=== PATIENT | female | born 1940 | race Caucasian/White ===

== ENCOUNTER 2017-04-16 18:24 | Inpatient (IN) | payer OTHER, MEDICAID ==
[2017-04-16] MEDS ORDERED: DiphenhydrAMINE 50 mg/ml Inj IVP STA (19:13)
[2017-04-16 19:53] LABS: BASO # 0.02 K/mm3 (0.0-2.0); BASO % 0.4 % (0.0-3.0); EOS # 0.1 (0.0-0.7); EOS % 2.6 % (1.5-5.0); GRAN # 2.09 (1.4-6.5); GRAN % 41.6 % (50.0-68.0); HEMOGLOBIN 14.3 g/dL (12.0-16.0); LYMPH # 2.3 (1.2-3.4); LYMPH % 45.2 % (22.0-35.0); MEAN CELL VOLUME 87.1 fl (80.0-105.0); MEAN CORPUSCULAR HEMOGLOBIN 29.2 pg (25.0-35.0); MEAN CORPUSCULAR HGB CONC 33.5 g/dl (31.0-37.0); MEAN PLATELET VOLUME 10.6 fl (7.0-11.0); MONO # 0.5 (0.1-0.6); MONO % 10.2 % (1.0-6.0); PLATELET COUNT 231 10^3/uL (120.0-450.0); RED CELL DISTRIBUTION WIDTH 13.4 % (11.5-14.5)
[2017-04-16 19:55] LABS: ALB/GLOB RATIO 1.4 (1.1-1.8); ALBUMIN 4.9 g/dL (3.0-4.8); ALT/SGPT 33 U/L (7-56); AST/SGOT 31 U/L (15-39); BLOOD UREA NITROGEN 12 mg/dL (7-21); CALCIUM 9.9 mg/dL (8.4-10.5); GFR AFRICAN-AMERICAN > 60; GFR NON-AFRICAN AMERICAN > 60
--- NOTE | 2017-04-16 20:30 | ED PDOC ---
Arrival/HPI <Zuri Lopez - Last Filed: 04/16/17 23:05> - General Historian: Patient - History of Present Illness Time/Duration: Other (today) Symptom Onset: Sudden Symptom Course: Unchanged Quality: Burning Severity Level: 2 <Jazmin Mata - Last Filed: 04/17/17 00:44> - General Chief Complaint: ENT Problem Time Seen by Provider: 04/16/17 19:13 - History of Present Illness Narrative History of Present Illness (Text): 04/16/17 20:26 76-year-old female presents today with swelling and pain to the posterior pharynx/throat. Patient states that 3 days ago she had swelling to her lips which are resolved. Patient states today she developed pain with swallowing and when she looked in the back of the Throat she noticed swelling to the uvula. Patient denies fevers or chills. Patient also states that she has had phlegm in the morning with cough. Denies chest pain or shortness of breath. Denies dizziness or weakness. Denies difficulty breathing. No new medications. (Jazmin Mata) Past Medical History - Provider Review Nursing Documentation Reviewed: Yes - Travel History Have you recently traveled outside [place] w/in the past 3 mons?: No - Infectious Disease Hx of Infectious Diseases: None - Tetanus Immunization Tetanus Immunization: Unknown - Reproductive Menopause: Yes - Cardiac Hx Hypertension: Yes - Pulmonary Hx Respiratory Disorders: No - Neurological Hx Neurological Disorder: No - HEENT Hx HEENT Disorder: No - Renal Hx Renal Disorder: No - Endocrine/Metabolic Hx Endocrine Disorders: No Hx Diabetes Mellitus Type 2: Yes - Hematological/Oncological Hx Blood Disorders: No - Integumentary Hx Dermatological Disorder: No - Musculoskeletal/Rheumatological Hx Musculoskeletal Disorders: No - Gastrointestinal Hx Gastrointestinal Disorders: No - Genitourinary/Gynecological Hx Genitourinary Disorders: No - Psychiatric Hx Psychophysiologic Disorder: No Hx Substance Use: No - Surgical History Hx Musculoskeletal Surgery: Yes (left leg) - Anesthesia Hx Anesthesia: Yes Hx Anesthesia Reactions: No Hx Malignant Hyperthermia: No - Suicidal Assessment Feels Threatened In Home Enviroment: No <Jazmin Mata - Last Filed: 04/17/17 00:44> Family/Social History - Physician Review Nursing Documentation Reviewed: Yes Family/Social History: Unknown Family HX Smoking Status: Never Smoked Hx Alcohol Use: No Hx Substance Use: No Hx Substance Use Treatment: No <Jazmin Mata - Last Filed: 04/17/17 00:44> Allergies/Home Meds <Zuri Lopez - Last Filed: 04/16/17 23:05> <Jazmin Mata - Last Filed: 04/17/17 00:44> Allergies/Adverse Reactions: Allergies No Known Allergies Allergy (Verified 04/16/17 18:44) Home Medications: Home Meds Medication Instructions Recorded Confirmed Amlodipine Besylate/Benazepril 1 cap PO DAILY 10/16/14 04/16/17 [Amlodipine Besylate and Benazepril Hydrochlor] Atorvastatin [Lipitor] 20 mg PO DAILY 10/16/14 04/16/17 Review of Systems - Review of Systems Constitutional: absent: Fatigue, Fevers ENT: Sore Throat. absent: Sinus Congestion Respiratory: Cough. absent: SOB Cardiovascular: absent: Chest Pain, Palpitations Gastrointestinal: absent: Abdominal Pain, Nausea, Vomiting Genitourinary Female: absent: Dysuria Musculoskeletal: absent: Arthralgias Neurological: absent: Headache, Dizziness Psychiatric: absent: Anxiety, Depression <Jazmin Mata - Last Filed: 04/17/17 00:44> Physical Exam Vital Signs Reviewed: Yes Temperature: Afebrile Blood Pressure: Normal Pulse: Regular Respiratory Rate: Normal Appearance: Positive for: Well-Appearing, Non-Toxic, Comfortable Pain Distress: None Mental Status: Positive for: Alert and Oriented X 3 - Systems Exam Head: Present: Atraumatic Mouth: Present: Moist Mucous Membranes Pharnyx: Present: Peritonsilar Swelling, Uvular Deviation, Soft Palate/Uvular Edema. No: Normal, ERYTHEMA, EXUDATE, TONSILS ENLARGED, Muffled/Hoarse Voice, Strider Nose (External): Present: Atraumatic Nose (Internal): Present: Normal Inspection Neck: Present: Normal Range of Motion Respiratory/Chest: Present: Clear to Auscultation, Good Air Exchange. No: Respiratory Distress, Accessory Muscle Use Cardiovascular: Present: Regular Rate and Rhythm, Normal S1, S2. No: Murmurs Abdomen: No: Tenderness Neurological: Present: GCS=15 Skin: Present: Warm, Dry, Normal Color. No: Rashes Psychiatric: Present: Alert, Oriented x 3 <Jazmin Mata - Last Filed: 04/17/17 00:44> Vital Signs Temp Pulse Resp BP Pulse Ox 04/16/17 22:42 98.2 F 67 18 141/72 04/16/17 22:03 98.2 F 67 18 141/72 100 04/16/17 19:53 69 16 157/89 H 100 04/16/17 18:38 99 F 72 16 138/74 98 Medical Decision Making <Zuri Lopez - Last Filed: 04/16/17 23:05> <Jazmin Mata - Last Filed: 04/17/17 00:44> ED Course and Treatment: 04/16/17 22:57 Patient seen and examined; is on an juana-inhibitor; appears stable in no respiratory distress; given steroids, benadryl, and pepcid for possible angioedema. CT done is showing soft palate prominence down to the epiglottis - will need close observation in the ICU. ENT called to evaluate the patient. 04/16/17 23:06 Patient seen by ENT; mild swelling noted on fiberoptic scope but not near the larynx; ENT not recommending intubation at this time; she will be placed in the ICU as discussed with Dr. Woods. (Zuri Lopez) 04/16/17 20:28 76-year-old female with posterior pharynx swelling and pain. Afebrile with stable vital signs. Patient with a history of hypertension; has been taking amlodipine/Benzapril for many years. No new medications. Patient's history suggest angioedema she has had lip swelling 3 days ago. Benadryl 25 IV Solu-Medrol 125 IV Pepcid 20 IV CBC: wnl CMP: wnl CAT scan of the neck soft tissue without contrast:FINDINGS: Limited evaluation on this noncontrast study. Atherosclerosis. Carotid calcification. Lung apices demonstrate coarsened interstitial markings. Dependent aspect of the visualized upper lobes demonstrates groundglass opacity, may be on the basis of atelectasis. Multilevel degenerative changes in the cervical spine, most severe at C5-C7. There is degenerative disc disease with disc osteophyte formation and associated impression on the central canal and neural foraminal narrowing. Partial visualization of mild paranasal sinus disease, most notably involving the right sphenoid and left maxillary sinuses. Shotty nodes. Glands appear symmetric. Soft palate appears prominent/enlarged and extends to the level of the epiglottis. Concern for underlying mass. Followup evaluation with CT with contrast or MRI is recommended. MRI is more sensitive for evaluation. IMPRESSION: Soft palate appears prominent/enlarged and extends to the level of the epiglottis. Concern for underlying lesion/mass. Followup evaluation with CT with contrast or MRI is recommended. MRI is more sensitive for evaluation. Please see additional details/findings as above. Some of the above findings may warrant followup evaluation after ct results; ENT consulted. i discussed case in depth with dr. SUÁREZ; he will have ENT residents come to ER to scope patient due to concern for angioedema. pt seen and evaluated by ENT residents; mild swelling noted on fiberoptic scope but not near the larynx; ENT is not recommending intubation at this time; pt to be placed in the ICU. case discussed with dr. woods. accepts admission impression; angioedema. admit to ICU (Jazmin Mata) - Lab Interpretations Lab Results: 04/16/17 19:30 04/16/17 19:30 Lab Results 04/16/17 19:30: WBC 5.0, RBC 4.90, Hgb 14.3, Hct 42.7, MCV 87.1, MCH 29.2, MCHC 33.5, RDW 13.4, Plt Count 231, MPV 10.6, Gran % 41.6 L, Lymph % (Auto) 45.2 H, Eddy % (Auto) 10.2 H, Eos % (Auto) 2.6, Baso % (Auto) 0.4, Gran # 2.09, Lymph # 2.3, Eddy # 0.5, Eos # 0.1, Baso # 0.02 04/16/17 19:30: Sodium 145, Potassium 4.2, Chloride 101, Carbon Dioxide 31, Anion Gap 17, BUN 12, Creatinine 0.8, Est GFR ( Amer) > 60, Est GFR (Non- Af Amer) > 60, Random Glucose 83, Calcium 9.9, Total Bilirubin 0.5, AST 31, ALT 33, Alkaline Phosphatase 74, Total Protein 8.4 H, Albumin 4.9 H, Globulin 3.6, Albumin/Globulin Ratio 1.4 - RAD Interpretation Radiology Orders: 04/16/17 19:22 NECK SOFT TISSUE W/O CONTRAST [CT] Stat 08/12/17 19:33 CHEST PORTABLE [RAD] Stat - Medication Orders Current Medication Orders: Dexamethasone (Decadron Inj) 10 mg IVP Q8 YAN Stop: 04/17/17 14:01 Famotidine (Pepcid) 20 mg IVP BID YAN Hydralazine HCl (Apresoline) 10 mg IVP Q6 PRN PRN Reason: SBP > 160 Sodium Chloride (Sodium Chloride 0.9%) 1,000 mls @ 100 mls/hr IV .Q10H YAN Insulin Human Lispro (Humalog Med) 0 units SC Q6 YAN PRN Reason: Protocol Discontinued Medications Diphenhydramine HCl (Benadryl) 25 mg IVP STAT STA Stop: 04/16/17 19:14 Last Admin: 04/16/17 19:33 Dose: 25 mg Famotidine (Pepcid) 20 mg IVP STAT STA Stop: 04/16/17 19:14 Last Admin: 04/16/17 19:34 Dose: 20 mg Methylprednisolone (Solu-Medrol) 125 mg IVP STAT STA Stop: 04/16/17 19:14 Last Admin: 04/16/17 19:34 Dose: 125 mg Pneumococcal Polyvalent Vaccine (Pneumovax 23 Vaccine) 0.5 ml IM .ONCE ONE Stop: 04/16/17 23:03 - PA / FINISHING AND SHIPPING SUPERVISOR / Resident Statement BROOKE has reviewed & agrees with the documentation as recorded. BROOKE has examined the patient and agrees with the treatment plan. <Zuri Lopez - Last Filed: 04/16/17 23:05> Disposition/Present on Arrival - Disposition Patient Plan: Admission <Zuri Lopez - Last Filed: 04/16/17 23:05> - Present on Arrival Any Indicators Present on Arrival: No History of DVT/PE: No History of Uncontrolled Diabetes: No Urinary Catheter: No History of Decub. Ulcer: No History Surgical Site Infection Following: None - Disposition Have Diagnosis and Disposition been Completed?: Yes Disposition Time: 20:30 Patient Plan: Admission <Jazmin Mata - Last Filed: 04/17/17 00:44> - Disposition Diagnosis: Angio-edema Disposition: HOSPITALIZED Patient Problems: Current Active Problems Problem Status Onset Angio-edema Acute Condition: SERIOUS
--- NOTE | 2017-04-16 21:28 | CT ---
EXAM: CT Neck Without Intravenous Contrast CLINICAL HISTORY: 76 years old, female; Pain; Painful swallowing and throat pain; Patient HX: Swelling/posterior pharynx TECHNIQUE: Axial computed tomography images of the neck without intravenous contrast. All CT scans at this facility use one or more dose reduction techniques, viz.: automated exposure control; ma/kV adjustment per patient size (including targeted exams where dose is matched to indication; i.e. head); or iterative reconstruction technique. Coronal and sagittal reformatted images were created and reviewed. COMPARISON: US - THYROID 07/22/2015 11:10:12 AM FINDINGS: Limited evaluation on this noncontrast study. Atherosclerosis. Carotid calcification. Lung apices demonstrate coarsened interstitial markings. Dependent aspect of the visualized upper lobes demonstrates groundglass opacity, may be on the basis of atelectasis. Multilevel degenerative changes in the cervical spine, most severe at C5-C7. There is degenerative disc disease with disc osteophyte formation and associated impression on the central canal and neural foraminal narrowing. Partial visualization of mild paranasal sinus disease, most notably involving the right sphenoid and left maxillary sinuses. Shotty nodes. Glands appear symmetric. Soft palate appears prominent/enlarged and extends to the level of the epiglottis. Concern for underlying mass. Followup evaluation with CT with contrast or MRI is recommended. MRI is more sensitive for evaluation. IMPRESSION: Soft palate appears prominent/enlarged and extends to the level of the epiglottis. Concern for underlying lesion/mass. Followup evaluation with CT with contrast or MRI is recommended. MRI is more sensitive for evaluation. Please see additional details/findings as above. Some of the above findings may warrant followup evaluation.
[2017-04-16 23:00] VITALS: BMI 28.3
[2017-04-16] MEDS ORDERED: Pneumococcal 23-Valent Vaccine IM ONE (23:02)
[2017-04-17] MEDS: Sodium Chloride 0.9% 1,000 ML IV SCH ×2 (00:57→12:42)
--- NOTE | 2017-04-17 04:57 | CP.PCM.HP ---
<Pollo Hernandez - Last Filed: 04/17/17 04:40> History of Present Illness - History of Present Illness History of Present Illness: Admission to ICU note for hospitalist service CC: Throat swelling and difficulty breathing HPI: This is a 76 yo F with PMH RA, HTN, Hypercholesterolemia, and DM managed with diet who presented to the ED with complaint of throat swelling and hoarseness, with increased difficulty breathing. Patient is amharic-speaking only, HPI and ROS obtained through sole filler (Tamika Chou #[id number]). Patient reports developing the throat swelling at ~11am on day of presentation to [facility]. Acute onset, persisting throughout day, prompting patient to present. No prior occurence of throat swelling reported, but notes that approx 4 days prior, she had an episode of lower-lip swelling that resolved with use of benadryl. Denies any exposures to new/exotic foods, hot/boiling foods & liquids, oropharyngeal goodwin, allergies to foods/medications, or recent illnesses. Of note, patient admits to long-term ACEi use, but states she has had no previous reactions to the medications. Denies chest pain, pain with respiration, focal weakness, nausea/emesis, dysuria, hematuria, diarrhea/constipation, or fevers/ chills. Admits to some dizziness, worsening breathing difficulty when flexing head/neck, and improved breathing when extended head/neck. All other ROS in 12- point systems review negative. 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 Iqbal Present on Admission - Present on Admission Any Indicators Present on Admission: No History of DVT/PE: No History of Uncontrolled Diabetes: No Urinary Catheter: No Review of Systems - Review of Systems All systems: reviewed and no additional remarkable complaints except (as per HPI ) Past Patient History - Infectious Disease Hx of Infectious Diseases: None - Tetanus Immunizations Tetanus Immunization: Unknown - Past Social History Smoking Status: Never Smoked - CARDIAC Hx Hypertension: Yes - PULMONARY Hx Respiratory Disorders: No - NEUROLOGICAL Hx Neurological Disorder: No - HEENT Hx HEENT Problems: No - RENAL Hx Chronic Kidney Disease: No - ENDOCRINE/METABOLIC Hx Endocrine Disorders: No Hx Diabetes Mellitus Type 2: Yes - HEMATOLOGICAL/ONCOLOGICAL Hx Blood Disorders: No - INTEGUMENTARY Hx Dermatological Problems: No - MUSCULOSKELETAL/RHEUMATOLOGICAL Hx Musculoskeletal Disorders: No - GASTROINTESTINAL Hx Gastrointestinal Disorders: No - GENITOURINARY/GYNECOLOGICAL Hx Genitourinary Disorders: No - PSYCHIATRIC Hx Psychophysiologic Disorder: No Hx Substance Use: No - SURGICAL HISTORY Hx Musculoskeletal Surgery: Yes (left leg) - ANESTHESIA Hx Anesthesia: Yes Hx Anesthesia Reactions: No Hx Malignant Hyperthermia: No Meds Allergies/Adverse Reactions: Allergies Allergy/AdvReac Type Severity Reaction Status Date / Time No Known Allergies Allergy Verified 04/16/17 18:44 Physical Exam - Constitutional Appears: Well, Non-toxic Additional comments: Uncomfortable, but not exhibiting acute distress - Head Exam Head Exam: ATRAUMATIC, NORMAL INSPECTION, NORMOCEPHALIC - Eye Exam Eye Exam: EOMI, Normal appearance. absent: Conjunctival injection, Scleral icterus Pupil Exam: absent: Irregular, Unequal - ENT Exam ENT Exam: Mucous Membranes Moist Additional comments: Not drooling Edematous/erythematous posterior pharynx and uvula - Neck Exam Neck exam: Negative for: Lymphadenopathy, Thyromegaly - Respiratory Exam Respiratory Exam: Clear to Auscultation Bilateral, NORMAL BREATHING PATTERN. absent: Accessory Muscle Use, Chest Wall Tenderness, Decreased Breath Sounds, Rales, Rhonchi, Wheezes, Respiratory Distress, Stridor Additional comments: No tachypnea, no sendy cyanosis - Cardiovascular Exam Cardiovascular Exam: REGULAR RHYTHM, RRR, +S1, +S2. absent: Bradycardia, Tachycardia, JVD - GI/Abdominal Exam GI & Abdominal Exam: Normal Bowel Sounds, Soft. absent: Diminished Bowel Sounds , Firm, Hyperactive Bowel Sounds, Hypoactive Bowel Sounds, Rigid, Tenderness - Extremities Exam Extremities exam: Positive for: tenderness (at site of keloid-like lesions in LLE), pedal pulses present (+2 radials and dorsalis pedis bilaterally). Negative for: calf tenderness, normal inspection, pedal edema Additional comments: keloid-like lesions along LLE between ankle and knee, mildly tender to palpation , no active bleeding/oozing/discharge from site - Neurological Exam Additional comments: Awake and alert, following all commands appropriately, moving all extremities spontaneously - Psychiatric Exam Psychiatric exam: Normal Affect, Normal Mood - Skin Skin Exam: Dry, Intact, Normal Color, Warm Results - Vital Signs Recent Vital Signs: Last Vital Signs Temp 98.2 F 04/17/17 04:00 Pulse 75 04/17/17 04:00 Resp 14 04/17/17 04:00 BP 130/55 L 04/17/17 04:00 Pulse Ox 94 L 04/17/17 04:00 - Labs Result Diagrams: 04/16/17 19:30 04/16/17 19:30 Assessment & Plan - Assessment and Plan (Free Text) Assessment: This is a 76 yo F with PMH RA, HTN, Hypercholesterolemia, and DM managed with diet who presented to the ED with complaint of throat swelling and hoarseness, with increased difficulty breathing. She was admitted for concern for possible angioedema, and was admitted to the ICU for close monitoring. Plan: Neuro: -awake and alert, following all commands -maintain normothermia ENT: -posterior pharynx and uvular swelling concerning for angio-edema, especially given recent lower-lip swelling and pt on ACEi -CT soft-tissue neck obtained in ED, notable for prominent/enlarged soft palate extending to level of the epiglottis, concerning for underlying lesion/mass -seen by ENT at bedside in the ED, bedside laryngoscope performed; mild swelling but not near the larynx, no indication for intubation at this time -Got Pepcid 20mg IV, Bendryl 25mg IV, and Solumedrol 125mg IV x1 each in ED; continue Pepcid IV BID as per ENT, Decadron 10mg q8 x3 doses ordered Cardio: -RRR on exam, hemodynamically stable -maintain MAP > 65, no pressor support needed at this time -NS IVF 100cc/hr Pulm: -CTAB, no sendy cyanosis, no tachypnea on exam -No need for intubation per ENT, will continue to observe, if develops respiratory distress will reconsider intubation GI: -NPO -Pepcid covers for GI ppx Renal: -Monitor I's & O's -Monitor and replete electrolytes as needed -Maintain euvolemia and euglycemia Heme: -Hgb 14.3 -no signs of acute bleeding or dehydration, continue to monitor -SCDs for DVT ppx ID: -afebrile, no leukocytosis -continue to monitor Endo: -ISS-Med given steroid use, Fingersticks q6 Dispo: ICU for observation, no need for pending intubation as per ENT FEN: NPO, NS 100cc/hr Access: Peripheral IV Consults: ENT Ppx: SCDs for DVT ppx, Pepcid covers for GI ppx Patient seen, reviewed, and discussed with attending, Dr. Claros. Decision To Admit - Pt Status Changed To: Hospital Disposition Of: Inpatient Admission - Admit Certification Admit to Inpatient:: After my assessment, the patient will require hospitalization for at least two midnights. This is because of the severity of symptoms shown, intensity of services needed, and/or the medical risk in this patient being treated as an outpatient. - . Bed Request Type: Critical Care <Johnson Claros - Last Filed: 04/17/17 05:30> Results - Vital Signs Recent Vital Signs: Last Vital Signs Temp 97.4 F L 04/17/17 04:00 Pulse 67 04/17/17 05:20 Resp 18 04/17/17 05:20 BP 130/55 L 04/17/17 04:00 Pulse Ox 96 04/17/17 05:20 - Labs Result Diagrams: 04/16/17 19:30 04/16/17 19:30 Attending/Attestation - Attestation I have personally seen and examined this patient.: Yes I have fully participated in the care of the patient.: Yes I have reviewed all pertinent clinical information: Yes Notes (Text): 04/17/17 05:27 I agree with the above mentioned note and exam by Dr. Hernandez with the addition/ exception of the following 76 y/o female presented with the sensation of fullness in the back of her throat after undergoing lip swelling a few days prior. Concern was for laryngeal edema; bedside laryngoscopy performed by ENT residents did not reveal such. Patient was given IV decadron, pepcid and will be monitored at least overnight in the ICU for continuous pulse oximetry. Given that the bulk of her angioedema occurred days prior, it appears unlikely that she will require advanced airway support at this time.
[2017-04-17] MEDS: Insulin Lispro (humaLOG) MEDIUM Coverage SC SCH ×3 (05:50→17:43)
[2017-04-17 05:59] LABS: BASO # 0.01 K/mm3 (0.0-2.0); BASO % 0.2 % (0.0-3.0); GRAN # 5.31 (1.4-6.5); GRAN % 79.6 % (50.0-68.0); HEMOGLOBIN 13.8 g/dL (12.0-16.0); LYMPH # 1.3 (1.2-3.4); LYMPH % 19.7 % (22.0-35.0); MEAN CELL VOLUME 86.5 fl (80.0-105.0); MEAN CORPUSCULAR HEMOGLOBIN 28.3 pg (25.0-35.0); MEAN CORPUSCULAR HGB CONC 32.7 g/dl (31.0-37.0); MEAN PLATELET VOLUME 10.5 fl (7.0-11.0); MONO % 0.5 % (1.0-6.0); PLATELET COUNT 222 10^3/uL (120.0-450.0); RBC 4.88 10^6/uL (3.5-6.1); RED CELL DISTRIBUTION WIDTH 13.2 % (11.5-14.5); WHITE BLOOD COUNT 6.7 10^3/ul (4.5-11.0)
[2017-04-17 06:12] LABS: ALB/GLOB RATIO 1.2 (1.1-1.8); ALBUMIN 4.6 g/dL (3.0-4.8); ALT/SGPT 29 U/L (7-56); AST/SGOT 26 U/L (15-39); BLOOD UREA NITROGEN 12 mg/dL (7-21); CALCIUM 9.4 mg/dL (8.4-10.5); GFR AFRICAN-AMERICAN > 60; GFR NON-AFRICAN AMERICAN > 60; MAGNESIUM 2.1 mg/dL (1.7-2.2)
--- NOTE | 2017-04-17 10:41 | PN ---
CHIEF DOG LICENSE INSPECTOR NOTE DATE: 04/17/2017 SUBJECTIVE: The patient is resting in bed. She speaks very little Yakut and with evidence technician stated that she has no problems swallowing. No respiratory distress. No chest pain. No feeling of swelling in her throat or lips. No fever, chills, nausea, or vomiting. No cough or shortness of breath. The patient is comfortable on room air and speaking freely. No obvious visible signs of facial lips or neck swelling. No tongue swelling as well. PHYSICAL EXAMINATION: VITAL SIGNS: Note that her temperature is 97.4, pulse is 80, respirations are 18, BP is 131/61, and O2 saturation is 96% on room air. HEENT: Head is atraumatic and normocephalic. Eyes; reactive to light. Ears, nose, and throat seems to be within normal limits. NECK: Supple. No JVD. No thyroid enlargement. No lymph nodes. HEART: Regular rate and rhythm. Normal S1 and S2. LUNGS: Reveal good breath sounds bilaterally. ABDOMEN: Soft and nontender. Normal bowel sounds. No organomegaly noted. GENITALIA AND RECTAL: Deferred. MUSCULOSKELETAL: No joint deformities. EXTREMITIES: Reveal no edema. NEUROLOGIC: She seems to be grossly intact. LABORATORY DATA: As far as her laboratories are concern, her white count is 6.7, hemoglobin is 13.8, hematocrit 42.2 with platelet of 222,000. Her sodium is 143, potassium is 3.9, chloride is 104, CO2 of 28 with a BUN of 12, creatinine of 0.7, and glucose of 166. IMPRESSION: This patient is presenting with angioedema and has a history of diabetes. PLAN: The patient will continue with her hydralazine for blood pressure. She is on insulin to cover her diabetes. The patient is on IV fluids and we will continue to observe closely and treat aggressively alone with the other consultants and the primary care doctor. Johnson Amaro MD
[2017-04-17 11:08] VITALS: O2SAT 99
--- NOTE | 2017-04-17 13:59 | CARD ---
APPROVED REPORT EKG Measurement Heart [id number] <Conclusion> Normal sinus rhythm Incomplete right bundle branch block Borderline ECG
[2017-04-18] MEDS: Insulin Lispro (humaLOG) MEDIUM Coverage SC SCH ×3 (00:03→13:00)
[2017-04-18] MEDS: Sodium Chloride 0.9% 1,000 ML IV SCH (00:13)
[2017-04-18 01:32] VITALS: TEMP 98.2
--- NOTE | 2017-04-18 07:07 | RAD ---
HISTORY: throat swelling COMPARISON: None. FINDINGS: LUNGS: No active pulmonary disease. PLEURA: No significant pleural effusion identified, no pneumothorax apparent. CARDIOVASCULAR: No radiographic findings to suggest acute or significant cardiovascular disease. OSSEOUS STRUCTURES: No significant abnormalities. VISUALIZED UPPER ABDOMEN: Normal. OTHER FINDINGS: None. IMPRESSION: No active disease.
[2017-04-18 07:12] LABS: BASO # 0.01 K/mm3 (0.0-2.0); BASO % 0.1 % (0.0-3.0); GRAN # 15.42 (1.4-6.5); GRAN % 87.9 % (50.0-68.0); HEMOGLOBIN 13.1 g/dL (12.0-16.0); LYMPH # 1.5 (1.2-3.4); LYMPH % 8.7 % (22.0-35.0); MEAN CELL VOLUME 86.1 fl (80.0-105.0); MEAN CORPUSCULAR HEMOGLOBIN 28.5 pg (25.0-35.0); MEAN CORPUSCULAR HGB CONC 33.1 g/dl (31.0-37.0); MEAN PLATELET VOLUME 10.9 fl (7.0-11.0); MONO # 0.6 (0.1-0.6); MONO % 3.3 % (1.0-6.0); PLATELET COUNT 224 10^3/uL (120.0-450.0); RED CELL DISTRIBUTION WIDTH 13.5 % (11.5-14.5); WHITE BLOOD COUNT 17.5 10^3/ul (4.5-11.0)
[2017-04-18 07:13] LABS: ALB/GLOB RATIO 1.2 (1.1-1.8); ALBUMIN 4.1 g/dL (3.0-4.8); ALT/SGPT 26 U/L (7-56); AST/SGOT 29 U/L (15-39); BLOOD UREA NITROGEN 14 mg/dL (7-21); CALCIUM 9.2 mg/dL (8.4-10.5); GFR AFRICAN-AMERICAN > 60; GFR NON-AFRICAN AMERICAN > 60; MAGNESIUM 1.9 mg/dL (1.7-2.2)
[2017-04-18 12:49] VITALS: BP 141/78; RESP 20
--- NOTE | 2017-04-18 15:26 | CP.PCM.DIS ---
<JasonKait - Last Filed: 04/18/17 15:34> Provider - Provider Date of Admission: 04/16/17 21:49 Attending physician: Hal Moseley MD Primary care physician: John Iqbal MD Consults: ENT Dr. Cordon Time Spent in preparation of Discharge (in minutes): 30 Diagnosis - Discharge Diagnosis (1) Anaphylaxis Status: Acute Priority: Medium Hospital Course - Lab Results Lab Results: Micro Results 04/16/17 23:25 Naris MRSA Culture (Admit) - Final MRSA NOT DETECTED Most Recent Lab Values WBC 17.5 10^3/ul (4.5-11.0) H D 04/18/17 06:30 RBC 4.60 10^6/uL (3.5-6.1) 04/18/17 06:30 Hgb 13.1 g/dL (12.0-16.0) 04/18/17 06:30 Hct 39.6 % (36.0-48.0) 04/18/17 06:30 MCV 86.1 fl (80.0-105.0) 04/18/17 06:30 MCH 28.5 pg (25.0-35.0) 04/18/17 06:30 MCHC 33.1 g/dl (31.0-37.0) 04/18/17 06:30 RDW 13.5 % (11.5-14.5) 04/18/17 06:30 Plt Count 224 10^3/uL (120.0-450.0) 04/18/17 06:30 MPV 10.9 fl (7.0-11.0) 04/18/17 06:30 Gran % 87.9 % (50.0-68.0) H 04/18/17 06:30 Lymph % (Auto) 8.7 % (22.0-35.0) L 04/18/17 06:30 [place] % (Auto) 3.3 % (1.0-6.0) 04/18/17 06:30 Eos % (Auto) 0.0 % (1.5-5.0) L 04/18/17 06:30 Baso % (Auto) 0.1 % (0.0-3.0) 04/18/17 06:30 Gran # 15.42 (1.4-6.5) H 04/18/17 06:30 Lymph # 1.5 (1.2-3.4) 04/18/17 06:30 [place] # 0.6 (0.1-0.6) 04/18/17 06:30 Eos # 0.0 (0.0-0.7) 04/18/17 06:30 Baso # 0.01 K/mm3 (0.0-2.0) 04/18/17 06:30 Sodium 142 mmol/L (132-148) 04/18/17 06:30 Potassium 3.9 mmol/L (3.6-5.0) 04/18/17 06:30 Chloride 106 mmol/L (95-110) 04/18/17 06:30 Carbon Dioxide 24 mmol/L (21-33) 04/18/17 06:30 Anion Gap 16 (10-20) 04/18/17 06:30 BUN 14 mg/dL (7-21) 04/18/17 06:30 Creatinine 0.6 mg/dL (0.5-1.4) 04/18/17 06:30 Est GFR ( Amer) > 60 04/18/17 06:30 Est GFR (Non-Af Amer) > 60 04/18/17 06:30 POC Glucose (mg/dL) 163 mg/dL (65-110) H 04/18/17 11:36 Random Glucose 138 mg/dL (70-110) H 04/18/17 06:30 Calcium 9.2 mg/dL (8.4-10.5) 04/18/17 06:30 Phosphorus 3.3 mg/dL (2.5-4.5) 04/18/17 06:30 Magnesium 1.9 mg/dL (1.7-2.2) 04/18/17 06:30 Total Bilirubin 0.3 mg/dL (0.2-1.3) 04/18/17 06:30 AST 29 U/L (15-39) 04/18/17 06:30 ALT 26 U/L (7-56) 04/18/17 06:30 Alkaline Phosphatase 78 U/L (38-133) 04/18/17 06:30 Total Protein 7.5 g/dL (5.8-8.3) 04/18/17 06:30 Albumin 4.1 g/dL (3.0-4.8) 04/18/17 06:30 Globulin 3.4 gm/dL 04/18/17 06:30 Albumin/Globulin Ratio 1.2 (1.1-1.8) 04/18/17 06:30 - Hospital Course Hospital Course: Discharge Summary for Dr. Moseley. Patient admitted 04/17, brought to ICU for angioedema, odynophagia. Patient seen and examined by ENT and placed on a liquid diet. Patient has been transferred to [facility] for observation by ICU team. PT S&E at bedside in ICU. Patient is stable. states it hurts to swallow. Admits to feeling swollen throat. Patient states she has been taking ACEI for about 4 years. Denies any new food intake yesterday. The face swelling started 11 am 04/16. four days prior, lower lip swelling resolved with benadryl usage. Patient is stable. vital signs stable in ICU. Dr. Horn cleared patient for Diet change to CLD for breakfast. and heart healthy diet for lunch. Patient's diet was advanced. Patient's HTN was observed and treated. Patient was on hydralazine and Norvasc 5mg. Patient told to adjust blood pressure with with primary care upon discharge. Angioedema possibly associated with ACEI usage. Patient and family told to discontinue lisinopril. - Date & Time of H&P Date of H&P: 04/18/17 Time of H&P: 15:34 Discharge Exam - Head Exam Head Exam: ATRAUMATIC, NORMAL INSPECTION, NORMOCEPHALIC - Eye Exam Eye Exam: EOMI, Normal appearance - ENT Exam ENT Exam: Mucous Membranes Moist, Normal Oropharynx - Neck Exam Neck exam: Full Rom - Respiratory Exam Respiratory Exam: NORMAL BREATHING PATTERN, UNREMARKABLE. absent: Accessory Muscle Use, Respiratory Distress - Cardiovascular Exam Cardiovascular Exam: REGULAR RHYTHM. absent: Diastolic murmur - GI/Abdominal Exam GI & Abdominal Exam: Normal Bowel Sounds, Soft, Unremarkable. absent: Tenderness - Extremities Exam Extremities exam: full ROM - Neurological Exam Neurological exam: Alert, Normal Gait, Oriented x3 - Psychiatric Exam Psychiatric exam: Normal Affect - Skin Skin Exam: Dry, Intact, Normal Color Discharge Plan - Discharge Medications Prescriptions: amLODIPine [Norvasc] 5 mg PO DAILY #30 tab Epinephrine HCl [Epipen Auto-Injector] 0.3 mg MR PRN PRN #3 ml PRN Reason: Anaphylaxis Epinephrine HCl [Epipen Auto-Injector] 0.3 mg MR PRN PRN #1 ml PRN Reason: Allergy Symptoms Famotidine [Pepcid] 40 mg PO HS #10 tablet Methylprednisolone [Medrol Dose Pack (21 tabs)] 4 mg PO DAILY #21 mg - Follow Up Plan Condition: SERIOUS Disposition: HOME/ ROUTINE Instructions: Angioedema (GEN) Additional Instructions: started on Norvasc (amlodipine) 5mg adjust blood pressure medication with primary care physician Dr. Iqbal angioedema possibly associated with ACEI usage, discontinue Lisinopril please see Mold Shaker/Compressor House Operator upon discharge within 1 week to avoid another episode carry epinephrine pen with you. instructions on how to use epinephrine pen via nurse instructions DC with medrol pack Referrals: John Iqbal MD [Primary Care Provider] - <Hal Moseley - Last Filed: 04/18/17 16:14> Provider - Provider Date of Admission: 04/16/17 21:49 Attending physician: Hal Moseley MD Primary care physician: John Iqbal MD Hospital Course - Lab Results Lab Results: Micro Results 04/16/17 23:25 Naris MRSA Culture (Admit) - Final MRSA NOT DETECTED Most Recent Lab Values WBC 17.5 10^3/ul (4.5-11.0) H D 04/18/17 06:30 RBC 4.60 10^6/uL (3.5-6.1) 04/18/17 06:30 Hgb 13.1 g/dL (12.0-16.0) 04/18/17 06:30 Hct 39.6 % (36.0-48.0) 04/18/17 06:30 MCV 86.1 fl (80.0-105.0) 04/18/17 06:30 MCH 28.5 pg (25.0-35.0) 04/18/17 06:30 MCHC 33.1 g/dl (31.0-37.0) 04/18/17 06:30 RDW 13.5 % (11.5-14.5) 04/18/17 06:30 Plt Count 224 10^3/uL (120.0-450.0) 04/18/17 06:30 MPV 10.9 fl (7.0-11.0) 04/18/17 06:30 Gran % 87.9 % (50.0-68.0) H 04/18/17 06:30 Lymph % (Auto) 8.7 % (22.0-35.0) L 04/18/17 06:30 [place] % (Auto) 3.3 % (1.0-6.0) 04/18/17 06:30 Eos % (Auto) 0.0 % (1.5-5.0) L 04/18/17 06:30 Baso % (Auto) 0.1 % (0.0-3.0) 04/18/17 06:30 Gran # 15.42 (1.4-6.5) H 04/18/17 06:30 Lymph # 1.5 (1.2-3.4) 04/18/17 06:30 [place] # 0.6 (0.1-0.6) 04/18/17 06:30 Eos # 0.0 (0.0-0.7) 04/18/17 06:30 Baso # 0.01 K/mm3 (0.0-2.0) 04/18/17 06:30 Sodium 142 mmol/L (132-148) 04/18/17 06:30 Potassium 3.9 mmol/L (3.6-5.0) 04/18/17 06:30 Chloride 106 mmol/L (95-110) 04/18/17 06:30 Carbon Dioxide 24 mmol/L (21-33) 04/18/17 06:30 Anion Gap 16 (10-20) 04/18/17 06:30 BUN 14 mg/dL (7-21) 04/18/17 06:30 Creatinine 0.6 mg/dL (0.5-1.4) 04/18/17 06:30 Est GFR ( Amer) > 60 04/18/17 06:30 Est GFR (Non-Af Amer) > 60 04/18/17 06:30 POC Glucose (mg/dL) 163 mg/dL (65-110) H 04/18/17 11:36 Random Glucose 138 mg/dL (70-110) H 04/18/17 06:30 Calcium 9.2 mg/dL (8.4-10.5) 04/18/17 06:30 Phosphorus 3.3 mg/dL (2.5-4.5) 04/18/17 06:30 Magnesium 1.9 mg/dL (1.7-2.2) 04/18/17 06:30 Total Bilirubin 0.3 mg/dL (0.2-1.3) 04/18/17 06:30 AST 29 U/L (15-39) 04/18/17 06:30 ALT 26 U/L (7-56) 04/18/17 06:30 Alkaline Phosphatase 78 U/L (38-133) 04/18/17 06:30 Total Protein 7.5 g/dL (5.8-8.3) 04/18/17 06:30 Albumin 4.1 g/dL (3.0-4.8) 04/18/17 06:30 Globulin 3.4 gm/dL 04/18/17 06:30 Albumin/Globulin Ratio 1.2 (1.1-1.8) 04/18/17 06:30 Attending/Attestation - Attestation I have personally seen and examined this patient.: Yes I have fully participated in the care of the patient.: Yes I have reviewed all pertinent clinical information, including history, physical exam and plan: Yes Notes (Text): 04/18/17 16:11 attending note; Patient seen and examined with resident. Patient is a 76-year-old female admitted with angioedema. Etiology is unknown. Treated with IV steroids. ENT evaluation appreciated. Currently patient is tolerating diet. CYNTHIA inhibitor stopped. Will be discharged home with [facility] an EpiPen. Patient is strongly advised to follow-up allergy/email specialist. Patient's family by the bedside. Upon discharge the patient will follow up With PMD Dr. Iqbal. Diagnosis; Allergic reaction/angioedema Hypertension hyperlipidemia
[2017-04-18 16:07] VITALS: PULSE 59
== END 2017-04-18 18:44 | disposition home or self-care (01) | DRG 916 ==
LOC: ED 18:24 → ERH 21:49 → CCU 23:21 → 2RNO 04-17 11:28
PROVIDERS: ADMIT Internal Medicine; ATTEND Internal Medicine
PROC: 0CJS8ZZ Inspection of Larynx, Via Natural or Artificial Opening Endoscopic (ICD-10-PCS; principal; 2017-04-16)
DX: T78.3XXA Angioneurotic edema, initial encounter (principal); R13.10 Dysphagia, unspecified; E11.9 Type 2 diabetes mellitus without complications; M06.9 Rheumatoid arthritis, unspecified; T50.995A Adverse effect of other drugs, medicaments and biological substances, initial encounter; R49.0 Dysphonia; I10 Essential (primary) hypertension; E78.00 Pure hypercholesterolemia, unspecified

== ENCOUNTER 2018-04-27 09:30 | Emergency (ER) | payer MEDICARE, MEDICAID ==
[2018-04-27 09:54] VITALS: BMI 31.1
--- NOTE | 2018-04-27 10:03 | ED PDOC ---
Arrival/HPI - General Chief Complaint: Trauma Time Seen by Provider: 04/27/18 09:39 Historian: Patient, Family (daughter) - History of Present Illness Narrative History of Present Illness (Text): 04/27/18 10:00 A 77 year old male, whose past medical history includes hypertension, hypotension, and diabetes type 2,presents to the emergency department complaining of left arm pain. Patient had diagnostic radiologist with her permission. Patient reports she tripped and fell onto left arm yesterday and at the time refused to go to the ER. Mentions specifically experiencing pain to left shoulder, down to left elbow. Pain worsens with movement, and at rest only experiences slight pain. Patient denies any head trauma, any other injuries, or any other complaints at this time. No PMD Time/Duration: 24 hours Past Medical History - Provider Review Nursing Documentation Reviewed: Yes - Infectious Disease Hx of Infectious Diseases: None - Tetanus Immunization Tetanus Immunization: Unknown - Reproductive Menopause: Yes - Cardiac Hx Cardiac Disorders: Yes Hx Hypertension: Yes Hx Hypotension: Yes - Pulmonary Hx Respiratory Disorders: No - Neurological Hx Neurological Disorder: No - HEENT Hx HEENT Disorder: No - Renal Hx Renal Disorder: No - Endocrine/Metabolic Hx Diabetes Mellitus Type 2: Yes - Hematological/Oncological Hx Blood Disorders: No - Integumentary Hx Dermatological Disorder: No - Musculoskeletal/Rheumatological Hx Musculoskeletal Disorders: No - Gastrointestinal Hx Gastrointestinal Disorders: No - Genitourinary/Gynecological Hx Genitourinary Disorders: No - Psychiatric Hx Psychophysiologic Disorder: No Hx Substance Use: No - Surgical History Hx Musculoskeletal Surgery: Yes (left leg) - Anesthesia Hx Anesthesia: Yes Hx Anesthesia Reactions: No Hx Malignant Hyperthermia: No - Suicidal Assessment Feels Threatened In Home Enviroment: No Family/Social History - Physician Review Nursing Documentation Reviewed: Yes Family/Social History: No Known Family HX Smoking Status: Never Smoked Hx Alcohol Use: No Hx Substance Use: No Hx Substance Use Treatment: No Allergies/Home Meds Allergies/Adverse Reactions: Allergies No Known Allergies Allergy (Verified 04/27/18 09:56) Home Medications: Home Meds Medication Instructions Recorded Confirmed Atorvastatin [Lipitor] 20 mg PO DAILY 10/16/14 04/27/18 Vitamin D3 1,000 iu PO DAILY 04/17/17 04/27/18 Review of Systems - Physician Review All systems were reviewed & negative as marked: Yes - Review of Systems Constitutional: absent: Other (no head trauma; no other notable injuries.) Musculoskeletal: Other (left shoulder pain radiating down to left elbow s/p trip and fall.) Physical Exam - Physical Exam Narrative Physical Exam (Text): Gen: VS reviewed, alert, well developed, well nourished, nontoxic, mild distress. ENT: normal pharynx. Eye: EOMI, PERRL. Neck: no JVD, supple, no adenopathy. CV: regular rate, regular rhythm, no rubs, no murmur, no gallops, S1, S2, pulses equal and strong. Pulm: no distress, clear to auscultation, no wheeze, no rhonchi, breath sounds equal, no rales. Abd: soft, nontender, no guarding, no rebound, no rigidity, normal bowel sounds. Ext: no edema. mild tenderness to left elbow with no deformity, left shoulder tenderness near acromion with no deformity. Skin: good color, no rash, no cyanosis. Psych: responds appropriately to questions, normal affect. Neuro: oriented x 3, CN2-12 intact grossly, motor intact, sensation intact. Vital Signs Reviewed: Yes Vital Signs Temp Pulse Resp BP Pulse Ox 04/27/18 11:27 63 18 141/79 96 04/27/18 09:38 99.4 F 76 18 163/67 H 98 Temperature: Afebrile Blood Pressure: Hypertensive Pulse: Regular Respiratory Rate: Normal Appearance: Positive for: Well-Appearing Pain Distress: None Mental Status: Positive for: Alert and Oriented X 3 Medical Decision Making ED Course and Treatment: 04/27/18 10:02 Impression: 77 year old female with left shoulder pain radiating down to left elbow s/p trip and fall. Physical exam shows mild tenderness to left elbow with no deformity, left shoulder tenderness near acromion with no deformity; no other acute findings on examination. Plan: -- Left Elbow X-Ray -- Left Humerus X-Ray -- Left Shoulder X-Ray -- Sling -- Tylenol -- Reassess and disposition Progress Notes: 04/27/2018 10:54 Left Elbow X-Ray IMPRESSION: Unremarkable radiographs of the left elbow. Dictator: Silvestre Juna MD 04/27/2018 10:56 Left Humerus X-Ray IMPRESSION: Normal radioagraphs of left humerus. Dictator: Silvestre Juan MD 04/27/2018 10:57 Left Shoulder X-Ray IMPRESSION: No acute fracture or discloation left shoulder. Degenerative changes left acromioclavicular and glenohumeral joints. Dictator: Silvestre Juan MD 04/27/18 12:40 patient feels well and ready to go home. all findings discussed with pt via tape recording machine operator. patient to go home and follow up with pcp. supportive care. - RAD Interpretation Radiology Orders: 04/27/18 09:57 ELBOW LEFT 3 VIEWS ROUTINE [RAD] Stat 04/27/18 09:58 HUMERUS LT FALL PROTOCOL [RAD] Stat SHOULDER LEFT [RAD] Stat - Medication Orders Current Medication Orders: Discontinued Medications Acetaminophen (Tylenol 325mg Tab) 975 mg PO STAT STA Stop: 04/27/18 09:58 Last Admin: 04/27/18 10:10 Dose: 975 mg MAR Pain/Vitals Document 04/27/18 10:10 [facility] (Rec: 04/27/18 10:10 [facility] [id number]) Pain Reassessment Is This A Pain ReAssessment? No Sleep Is patient sleeping during reassessment? No Presence of Pain Presence of Pain Yes Pain Scale Used Pain Scale Used Numeric Location Left, Right or Bilateral Left Pain Location Body Site Arm Description Intermittent Intensity 4 Scale Used Numeric - Scribe Statement The provider has reviewed the documentation as recorded by the Uli Newton Provider Scribe Attestation: All medical record entries made by the Scribe were at my direction and personally dictated by me. I have reviewed the chart and agree that the record accurately reflects my personal performance of the history, physical exam, medical decision making, and the department course for this patient. I have also personally directed, reviewed, and agree with the discharge instructions and disposition. Disposition/Present on Arrival - Present on Arrival Any Indicators Present on Arrival: No History of DVT/PE: No History of Uncontrolled Diabetes: No Urinary Catheter: No History of Decub. Ulcer: No History Surgical Site Infection Following: None - Disposition Have Diagnosis and Disposition been Completed?: Yes Diagnosis: Arm contusion Disposition: HOME/ ROUTINE Disposition Time: 12:42 Patient Plan: Discharge Condition: STABLE Print Language: ROMANSH Additional Instructions: GERALDINE MOSER, thank you for letting us take care of you today. Your provider was Dr. Champ Guzmán and you were treated for contusion left arm. The emergency medical care you received today was directed at your acute symptoms. If you were prescribed any medication, please fill it and take as directed. It may take several days for your symptoms to resolve. Return to the Emergency Department if your symptoms worsen, do not improve, or if you have any other problems. Please contact your doctor or call one of the physicians/clinics you have been referred to that are listed on the Patient Visit Information form that is included in your discharge packet. Bring any paperwork you were given at discharge with you along with any medications you are taking to your follow up visit. Our treatment cannot replace ongoing medical care by a primary care provider outside of the emergency department. Thank you for allowing the [facility] team to be part of your care today. If you had an X-Ray or CT scan: A Radiologist will review the ED reading if any change in treatment is needed we will contact you. If you had a blood, urine, or wound culture: It will take several days for the results, if any change in treatment is needed we will contact you. If you had an STI test: It will take 48 hours for the results. Please call after 1 week if you have not heard back. Referrals: [facility] [Outside] - Follow up with primary Crissy Gonzalez MD [Medical Doctor] - Follow up with primary Forms: [employer] (Canadian)
--- NOTE | 2018-04-27 10:56 | RAD ---
Date of service: 04/27/2018 PROCEDURE: Radiographs of the left elbow. HISTORY: pain, injury COMPARISON: No prior. FINDINGS: BONES: No acute fracture or destructive bony lesion identified. JOINTS: Normal. No osteoarthritis. SOFT TISSUES: Normal. JOINT EFFUSION: None. OTHER FINDINGS: None IMPRESSION: Unremarkable radiographs of the left elbow.
--- NOTE | 2018-04-27 10:57 | RAD ---
PROCEDURE: Radiographs of the left humerus. HISTORY: fall, injury COMPARISON: None. FINDINGS: BONES: No acute fracture or destructive bony lesion identified. SOFT TISSUES: Normal. OTHER FINDINGS: None. IMPRESSION: Normal radiographs of left humerus.
--- NOTE | 2018-04-27 10:59 | RAD ---
Date of service: 04/27/2018 PROCEDURE: Radiographs of the Left Shoulder HISTORY: fall, injury COMPARISON: No prior. FINDINGS: BONES: No fractures identified or destructive bony lesion. JOINTS: Mild degenerative changes seen the glenohumeral and acromioclavicular joints. Patient not able to optimally position simulating subluxation inferiorly of the humeral head relative to the glenoid process. No suspicious subluxation appreciated. SOFT TISSUES: Normal. OTHER FINDINGS: None. IMPRESSION: No acute fracture or dislocation left shoulder. Degenerative changes left acromioclavicular and glenohumeral joints.
[2018-04-27 13:03] VITALS: BP 130/72; PULSE 70; RESP 17; TEMP 99; O2SAT 98
== END 2018-04-27 13:05 | disposition home or self-care (01) ==
LOC: ED 09:30
DX: S40.022A Contusion of left upper arm, initial encounter (principal); W01.0XXA Fall on same level from slipping, tripping and stumbling without subsequent striking against object, initial encounter; I10 Essential (primary) hypertension; E11.9 Type 2 diabetes mellitus without complications

== ENCOUNTER 2018-09-08 10:50 | Outpatient (CLI) | payer MEDICARE, MEDICAID | END 2018-09-08 10:51 | disposition home or self-care (01) | LOC: RAD 10:50 ==

== ENCOUNTER 2018-09-22 14:58 | Emergency (ER) | payer MEDICARE, MEDICAID ==
[2018-09-22 15:08] VITALS: BMI 31.1
--- NOTE | 2018-09-22 16:04 | ED PDOC ---
Arrival/HPI - General Chief Complaint: Upper Extremity Problem/Injury Historian: Patient - History of Present Illness Narrative History of Present Illness (Text): 09/22/18 15:59 78yo female with no pmhx who present with complaint of left shoulder pain x m onths. The son by the bedside states patient was placed on Meloxicam by her PMD, but ran out few days ago and came to ED for the pain. Pain is with abduction of her left arm. Patient has been seen here for the same complaint few months and shoulder xray showed mild degeneration. She denies focal weakness, trauma, chest pain, any other complaint. Past Medical History - Provider Review Nursing Documentation Reviewed: Yes - Infectious Disease Hx of Infectious Diseases: None - Tetanus Immunization Tetanus Immunization: Unknown - Cardiac Hx Cardiac Disorders: Yes Hx Hypertension: Yes Hx Hypotension: Yes - Pulmonary Hx Respiratory Disorders: No - Neurological Hx Neurological Disorder: No - HEENT Hx HEENT Disorder: No - Renal Hx Renal Disorder: No - Endocrine/Metabolic Hx Endocrine Disorders: Yes Hx Diabetes Mellitus Type 2: Yes - Hematological/Oncological Hx Blood Disorders: No - Integumentary Hx Dermatological Disorder: No - Musculoskeletal/Rheumatological Hx Musculoskeletal Disorders: No - Gastrointestinal Hx Gastrointestinal Disorders: No - Genitourinary/Gynecological Hx Genitourinary Disorders: No - Psychiatric Hx Psychophysiologic Disorder: No Hx Substance Use: No - Surgical History Hx Musculoskeletal Surgery: Yes (left leg) - Anesthesia Hx Anesthesia: Yes Hx Anesthesia Reactions: No Hx Malignant Hyperthermia: No - Suicidal Assessment Feels Threatened In Home Enviroment: No Family/Social History - Physician Review Nursing Documentation Reviewed: Yes Family/Social History: Unknown Family HX Smoking Status: Never Smoked Hx Alcohol Use: No Hx Substance Use: No Hx Substance Use Treatment: No Allergies/Home Meds Allergies/Adverse Reactions: Allergies No Known Allergies Allergy (Verified 09/22/18 15:08) Home Medications: Home Meds Medication Instructions Recorded Confirmed Atorvastatin [Lipitor] 20 mg PO DAILY 10/16/14 04/27/18 Vitamin D3 1,000 iu PO DAILY 04/17/17 04/27/18 Review of Systems - Physician Review All systems were reviewed & negative as marked: Yes - Review of Systems Constitutional: Normal Eyes: Normal ENT: Normal Respiratory: Normal Cardiovascular: Normal Gastrointestinal: Normal Genitourinary Female: Normal Musculoskeletal: Arthralgias (Left shoulder) Skin: Normal Neurological: Normal Endocrine: Normal Hemo/Lymphatic: Normal Psychiatric: Normal Physical Exam Vital Signs Reviewed: Yes Vital Signs Temp Pulse Resp BP Pulse Ox 09/22/18 15:08 98.7 F 81 18 160/77 H 96 Temperature: Afebrile Blood Pressure: Normal Pulse: Regular Respiratory Rate: Normal Appearance: Positive for: Well-Appearing, Non-Toxic, Comfortable Pain Distress: None Mental Status: Positive for: Alert and Oriented X 3 - Systems Exam Head: Present: Atraumatic, Normocephalic Pupils: Present: PERRL Extroacular Muscles: Present: EOMI Conjunctiva: Present: Normal Mouth: Present: Moist Mucous Membranes Neck: Present: Normal Range of Motion Respiratory/Chest: Present: Clear to Auscultation, Good Air Exchange. No: Respiratory Distress, Accessory Muscle Use Cardiovascular: Present: Regular Rate and Rhythm, Normal S1, S2. No: Murmurs Abdomen: No: Tenderness, Distention, Peritoneal Signs Back: Present: Normal Inspection Upper Extremity: Present: Normal Inspection, NORMAL PULSES, Neurovascularly Intact. No: Cyanosis, Edema, Normal ROM (Limited on abduction up to 90degrees), Tenderness, Deformity Lower Extremity: Present: Normal Inspection. No: Edema Neurological: Present: GCS=15, CN II-XII Intact, Speech Normal Skin: Present: Warm, Dry, Normal Color. No: Rashes Psychiatric: Present: Alert, Oriented x 3, Normal Insight, Normal Concentration Medical Decision Making ED Course and Treatment: 09/22/18 18:24 PT presented to ED for stated history. She was seen here in April for same complaint. She denied chest pain in ED and had focal pain over her left shoulder. She was NVI. Her xray from previous visit was reviewed and it was normal. Her pain was controlled in ED and she was DC home with Naprosyn. Referred to ort [facility] - Medication Orders Current Medication Orders: Ketorolac Tromethamine (Toradol) 30 mg IM STAT STA Stop: 09/22/18 15:58 Disposition/Present on Arrival - Present on Arrival Any Indicators Present on Arrival: No History of DVT/PE: No History of Uncontrolled Diabetes: No Urinary Catheter: No History of Decub. Ulcer: No History Surgical Site Infection Following: None - Disposition Have Diagnosis and Disposition been Completed?: Yes Diagnosis: Shoulder pain Disposition: HOME/ ROUTINE Disposition Time: 16:10 Patient Plan: Discharge Condition: STABLE Discharge Instructions (ExitCare): Shoulder Pain (DC) Additional Instructions: Follow up with your Doctor/Orthopedist Return to ED for any new or worsening symptoms Prescriptions: Naproxen [Naprosyn] 500 mg PO BID #20 tablet Referrals: John Iqbal MD [Primary Care Provider] - Follow up with primary Nolberto Herrera III, MD [Medical Doctor] - Follow up with primary Forms: [employer] (Belarusian)
[2018-09-22 16:19] VITALS: BP 141/76; PULSE 89; RESP 16; TEMP 98.3; O2SAT 98
== END 2018-09-22 16:18 | disposition home or self-care (01) ==
LOC: ED 14:58
DX: M25.512 Pain in left shoulder (principal); I10 Essential (primary) hypertension
CPT/HCPCS: 96372; 99283; J1885

== ENCOUNTER 2018-12-16 14:31 | Observation (INO) | payer MEDICARE, MEDICAID ==
--- NOTE | 2018-12-16 14:41 | ED PDOC ---
Arrival/HPI - General Chief Complaint: Dizziness/Lightheaded Historian: Patient, Family (kit), Heel Caser (Slovenian) - History of Present Illness Narrative History of Present Illness (Text): 12/16/18 15:05 A 78 year old female, whose past medical history includes pre-diabetic, and hypertension, accompanied by daughter and granddaughter, presents to the emergency department complaining of fatigue, weakness, and dizziness. Patient is Slovenian-speaking. Patient reports also experiencing chest discomfort starting at 12:00. States she took Calcium pill at 09:30, hypertension medication, and 2 Advils. Patient notes she has never experienced these symptoms in the past. Patient denies any headache, rash, appetite changes, syncope, fever, nausea, vomiting, diarrhea, or any other complaints at this time. Denies any allergies to medications. Also, patient's granddaughter mentions patient had a skin graft surgery performed in the past (from thigh to tabares due to skin infection). No change in skin graft today or recently. No unilateral weakness or slurred speech. PMD: Dr. Iqbal Past Medical History - Provider Review Nursing Documentation Reviewed: Yes - Infectious Disease Hx of Infectious Diseases: None - Tetanus Immunization Tetanus Immunization: Unknown - Reproductive Menopause: Yes - Cardiac Hx Cardiac Disorders: Yes Hx Hypertension: Yes Hx Hypotension: Yes - Pulmonary Hx Respiratory Disorders: No - Neurological Hx Neurological Disorder: No - HEENT Hx HEENT Disorder: No - Renal Hx Renal Disorder: No - Endocrine/Metabolic Hx Endocrine Disorders: Yes Hx Diabetes Mellitus Type 2: Yes - Hematological/Oncological Hx Blood Disorders: No - Integumentary Hx Dermatological Disorder: No - Musculoskeletal/Rheumatological Hx Musculoskeletal Disorders: No - Gastrointestinal Hx Gastrointestinal Disorders: No - Genitourinary/Gynecological Hx Genitourinary Disorders: No - Psychiatric Hx Psychophysiologic Disorder: No Hx Substance Use: No - Surgical History Hx Musculoskeletal Surgery: Yes (left leg) - Anesthesia Hx Anesthesia: Yes Hx Anesthesia Reactions: No Hx Malignant Hyperthermia: No - Suicidal Assessment Feels Threatened In Home Enviroment: No Family/Social History - Physician Review Nursing Documentation Reviewed: Yes Family/Social History: No Known Family HX Smoking Status: Never Smoked Hx Alcohol Use: No Hx Substance Use: No Hx Substance Use Treatment: No Allergies/Home Meds Allergies/Adverse Reactions: Allergies No Known Allergies Allergy (Verified 12/16/18 14:36) Home Medications: Home Meds Medication Instructions Recorded Confirmed Atorvastatin [Lipitor] 20 mg PO DAILY 10/16/14 04/27/18 Vitamin D3 1,000 iu PO DAILY 04/17/17 04/27/18 Review of Systems - Physician Review All systems were reviewed & negative as marked: Yes - Review of Systems Constitutional: Fatigue, Other (weakness, diffuse) Eyes: absent: Vision Changes, Photophobia, Eye Pain ENT: absent: Hearing Changes Cardiovascular: Chest Pain (chest discomfort). absent: Palpitations, Calf Pain, Syncope Gastrointestinal: absent: Abdominal Pain, Diarrhea, Nausea, Vomiting, Appetite Changes Genitourinary Female: absent: Dysuria Musculoskeletal: absent: Arthralgias Skin: absent: Rash Neurological: Dizziness. absent: Headache, Focal Weakness, Speech Changes, Seizure Psychiatric: absent: Anxiety, Depression, Suicidal Ideation Physical Exam Vital Signs Reviewed: Yes Vital Signs Pulse Pulse Ox 12/16/18 14:32 65 96 Temperature: Afebrile Blood Pressure: Normal Pulse: Regular Respiratory Rate: Normal Appearance: Positive for: Well-Appearing, Non-Toxic, Comfortable Pain Distress: None Mental Status: Positive for: Alert and Oriented X 3 Finger Stick Blood Glucose: 100 - Systems Exam Head: Present: Atraumatic, Normocephalic Pupils: Present: PERRL Extroacular Muscles: Present: EOMI Conjunctiva: Present: Normal Ears: Present: Normal. No: Erythema Mouth: Present: Moist Mucous Membranes Neck: Present: Normal Range of Motion. No: Meningeal Signs, MIDLINE TENDERNESS Respiratory/Chest: Present: Clear to Auscultation, Good Air Exchange. No: Respiratory Distress, Accessory Muscle Use Cardiovascular: Present: Regular Rate and Rhythm, Normal S1, S2. No: Murmurs Abdomen: No: Tenderness, Distention, Peritoneal Signs, Guarding, McBurney's Point Tender, Rovsing's Sign Present Back: Present: Normal Inspection. No: CVA Tenderness, Midline Tenderness Upper Extremity: Present: Normal Inspection, NORMAL PULSES, Neurovascularly Intact. No: Cyanosis, Edema Lower Extremity: Present: Normal Inspection, NORMAL PULSES, Neurovascularly Intact. No: Edema Neurological: Present: GCS=15, CN II-XII Intact, Speech Normal, Motor Func Grossly Intact, Normal Cerebellar Funct, Memory Normal Skin: Present: Warm, Normal Color, Other (lower leg anterior tabares graft noted.). No: Dry, Rashes Psychiatric: Present: Alert, Oriented x 3, Normal Insight, Normal Concentration Medical Decision Making ED Course and Treatment: 12/16/18 15:11 Impression: 78 year female with chest pain, diffuse weakness, fatigue, and dizziness. No meningeal signs, no unilateral weakness or slurred speech. No vertigo per pt. On exam, good strength in all extremities. No chest pain radiating to back or pleuritic chest pain. No dark or bloody stool, no urinary complaints. No fever, chills or night sweats. No URI symptoms or rash. No abdominal pain, no GI or complaints. Plan: -- EKG -- Head CT -- Chest X-ray -- IV Fluids -- Labs -- Reassess and disposition Progress Notes: EKG: Ordered, reviewed, and independently interpreted the EKG. Rate : 65 BPM Rhythm : NSR Interpretation : No STEMI. Comparison : No previous EKG for comparison. 12/16/2018 15:00 Chest X-ray IMPRESSION: Poor inspiration with low lung volumes, crowded bronchovascular markings and mild bibasilar atelectasis. Dictator: Dr. Ramírez Myers 12/16/18 16:04 labs, imaging unremarkable cth per my read unremarkable ASA ordered Appreciate consult w/ Dr. Mukherjee: to admit to his service pt in NAD, agreeable to plan - Scribe Statement The provider has reviewed the documentation as recorded by the Uil Newton Provider Scribe Attestation: All medical record entries made by the Scribe were at my direction and personally dictated by me. I have reviewed the chart and agree that the record accurately reflects my personal performance of the history, physical exam, medical decision making, and the department course for this patient. I have also personally directed, reviewed, and agree with the discharge instructions and disposition. Disposition/Present on Arrival - Present on Arrival Any Indicators Present on Arrival: No History of DVT/PE: No History of Uncontrolled Diabetes: No Urinary Catheter: No History of Decub. Ulcer: No History Surgical Site Infection Following: None - Disposition Have Diagnosis and Disposition been Completed?: Yes Diagnosis: Chest pain, Dizziness Disposition: HOSPITALIZED Disposition Time: 16:04 Condition: STABLE Discharge Instructions (ExitCare): Chest Pain (ED) Forms: [employer] (Macedonian)
[2018-12-16] MEDS ORDERED: Sodium Chloride 0.9% 1,000 ML IV SCH (15:00)
[2018-12-16 15:03] LABS: BASO # 0.03 K/mm3 (0.0-2.0); BASO % 0.5 % (0.0-3.0); EOS # 0.2 (0.0-0.7); EOS % 2.8 % (1.5-5.0); LYMPH % 62.3 % (22.0-35.0); MEAN CELL VOLUME 87.3 fl (80.0-105.0); MEAN CORPUSCULAR HEMOGLOBIN 28.6 pg (25.0-35.0); MEAN CORPUSCULAR HGB CONC 32.7 g/dl (31.0-37.0); MEAN PLATELET VOLUME 10.6 fl (7.0-11.0); MONO # 0.6 (0.1-0.6); MONO % 9.1 % (1.0-6.0); RBC 4.9 10^6/uL (3.5-6.1); RED CELL DISTRIBUTION WIDTH 13.3 % (11.5-14.5); WHITE BLOOD COUNT 6.3 10^3/uL (4.5-11.0)
--- NOTE | 2018-12-16 15:21 | RAD ---
Date of service: 12/16/2018 HISTORY: cp COMPARISON: No prior. TECHNIQUE: 1 view obtained. FINDINGS: LUNGS: Poor inspiration with low lung volumes, crowded bronchovascular markings and mild bibasilar atelectasis. PLEURA: No significant pleural effusion identified, no pneumothorax apparent. CARDIOVASCULAR: Cardiomegaly. Aorta slightly ectatic and uncoiled with mild aortic aortic atherosclerotic calcification present. OSSEOUS STRUCTURES: Mild multilevel degenerative spondylosis of the thoracic spine. VISUALIZED UPPER ABDOMEN: Normal. OTHER FINDINGS: None. IMPRESSION: Poor inspiration with low lung volumes, crowded bronchovascular markings and mild bibasilar atelectasis.
[2018-12-16 15:23] LABS: ALB/GLOB RATIO 1.1 (1.1-1.8); ALBUMIN 4.6 g/dL (3.0-4.8); ALT/SGPT 14 U/L (7-56); AST/SGOT 27 U/L (14-36); BLOOD UREA NITROGEN 14 mg/dL (7-21); GFR NON-AFRICAN AMERICAN > 60
[2018-12-16 15:35] LABS: B-TYPE NATRIURETIC PEPTIDE 150 pg/mL (0-450); TROPONIN I < 0.01 ng/mL
--- NOTE | 2018-12-16 16:02 | CT ---
Date of service: 12/16/2018 PROCEDURE: CT HEAD WITHOUT CONTRAST. HISTORY: Dizziness COMPARISON: Comparison made with prior CT scan of the brain dated 03/14/2018. TECHNIQUE: Axial computed tomography images were obtained through the head/brain without intravenous contrast. Radiation dose: Total exam DLP = 841.45 mGy-cm. This CT exam was performed using one or more of the following dose reduction techniques: Automated exposure control, adjustment of the mA and/or kV according to patient size, and/or use of iterative reconstruction technique. FINDINGS: HEMORRHAGE: No acute parenchymal, subarachnoid or extra-axial hemorrhage. BRAIN: No evidence of large acute infarct. Suspect minimal chronic periventricular white matter ischemic changes. Mild generalized volume loss. Incidental note is made of a small bubble of air in the posterior aspect of the left cavernous sinus likely due to recent intravenous injection. Clinical correlation recommended. VENTRICLES: No obstructive hydrocephalus. CALVARIUM: Calvarium intact however hyperostosis frontalis interna again noted. PARANASAL SINUSES: Unremarkable as visualized. No significant inflammatory changes. MASTOID AIR CELLS: Unremarkable as visualized. No inflammatory changes. OTHER FINDINGS: Changes of bilateral cataract surgery again noted. IMPRESSION: No acute intracranial hemorrhage. Suspect minimal chronic periventricular white matter ischemic changes. Mild generalized volume loss. Small bubble of air within the left cavernous sinus likely due to recent intravenous injection.
--- NOTE | 2018-12-16 17:51 | CP.PCM.HP ---
<EdinsonJan - Last Filed: 12/16/18 20:19> History of Present Illness - History of Present Illness History of Present Illness: Jan Neves, PGY1 Medicine H&P Note For Dr. Afua De Luna CC: epigastric abd discomfort and dizziness Pt is a 78 yo F with pmhx significant for HTN, pre-diabetes and questionable dementia who presents for epigastric abd discomfort and dizziness. Pt states that this began this at 11 am, when she was cooking. She states that she was standing by the stove and started to feel very hot and flush and suddenly became weak. She reports that the felt the flames of the stove were very strong and then started to notice the dizziness, abd pain and weakness. Pt describes the dizziness as neither the room nor her spinning, but just feels weak. She denies ever having this type of episode happen to her in the past. Pt also admits that today she took donepizil for the first time today after a long period of time where she was not taking the medication. She describes her abdominal pain as a discomfort more than a pain and states that she would not even put it on a pain scale because it is not painful. She denies any radiation of the pain or related to any exertion. Pt admits to recently returning from the [place] on Tuesday (12/11) after spending 2 months there. Pt denies having any of these symptoms during her stay in the . Pt at this time denies any fevers, chills, headaches, vision changes, ringing in the ears, chest pain, palpitations, SOB, cough, n/v, c/d or dysuria. She does admit to the epigastric abdominal discomfort and dizziness and weakness. Pmhx: HTN, pre-diabetes, and questionable dementia Pshx: Skin graft from lateral thigh to L ant tabares 2/2 infection of skin Meds: norvasc 2.5mg qd, Donepizil 10 (first time taking) All: NKDA Soc: Denies any tobacco use hx, denies etoh or illicit drug use Fam Hx: Non-contributory PMD: Dr. Iqbal Pharm: [facility] Present on Admission - Present on Admission Any Indicators Present on Admission: No Review of Systems - Review of Systems Review of Systems: 12 point ROS reviewed and negative except noted in HPI above. Past Patient History - Infectious Disease Hx of Infectious Diseases: None - Tetanus Immunizations Tetanus Immunization: Unknown - Past Social History Smoking Status: Never Smoked - CARDIAC Hx Cardiac Disorders: Yes Hx Hypertension: Yes Hx Hypotension: Yes - PULMONARY Hx Respiratory Disorders: No - NEUROLOGICAL Hx Neurological Disorder: No - HEENT Hx HEENT Problems: No - RENAL Hx Chronic Kidney Disease: No - ENDOCRINE/METABOLIC Hx Endocrine Disorders: Yes Hx Diabetes Mellitus Type 2: Yes - HEMATOLOGICAL/ONCOLOGICAL Hx Blood Disorders: No - INTEGUMENTARY Hx Dermatological Problems: No - MUSCULOSKELETAL/RHEUMATOLOGICAL Hx Musculoskeletal Disorders: No - GASTROINTESTINAL Hx Gastrointestinal Disorders: No - GENITOURINARY/GYNECOLOGICAL Hx Genitourinary Disorders: No - PSYCHIATRIC Hx Psychophysiologic Disorder: No Hx Substance Use: No - SURGICAL HISTORY Hx Musculoskeletal Surgery: Yes (left leg) - ANESTHESIA Hx Anesthesia: Yes Hx Anesthesia Reactions: No Hx Malignant Hyperthermia: No Meds Allergies/Adverse Reactions: Allergies Allergy/AdvReac Type Severity Reaction Status Date / Time No Known Allergies Allergy Verified 12/16/18 17:35 Physical Exam - Constitutional Appears: Non-toxic, No Acute Distress - Head Exam Head Exam: ATRAUMATIC, NORMAL INSPECTION, NORMOCEPHALIC - Eye Exam Eye Exam: EOMI, Normal appearance, PERRL. absent: Nystagmus, Scleral icterus Pupil Exam: NORMAL ACCOMODATION. absent: Fixed, Irregular, Miosis, Mydriatic - ENT Exam ENT Exam: Mucous Membranes Dry - Respiratory Exam Respiratory Exam: Clear to Auscultation Bilateral, NORMAL BREATHING PATTERN. absent: Accessory Muscle Use, Rales, Rhonchi, Wheezes, Respiratory Distress, Stridor - Cardiovascular Exam Cardiovascular Exam: +S1, +S2. absent: Gallop, Rubs - GI/Abdominal Exam GI & Abdominal Exam: Normal Bowel Sounds, Soft. absent: Distended, Firm, Guarding, Tenderness - Extremities Exam Extremities exam: Positive for: normal capillary refill, pedal pulses present. 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 absent: CVA tenderness (L), CVA tenderness (R) - Neurological Exam Neurological exam: Alert, Oriented x3 - Psychiatric Exam Psychiatric exam: Normal Affect, Normal Mood - Skin Skin Exam: Dry, Normal Color, Warm Results - Vital Signs Recent Vital Signs: Last Vital Signs Temp 97.5 F L 12/16/18 14:31 Pulse 66 12/16/18 16:42 Resp 16 12/16/18 16:42 BP 149/83 12/16/18 16:42 Pulse Ox 95 12/16/18 16:42 - Labs Result Diagrams: 12/16/18 14:40 12/16/18 14:40 Labs: Laboratory Results - last 24 hr 12/16/18 12/16/18 14:40 14:40 WBC 6.3 RBC 4.90 Hgb 14.0 Hct 42.8 MCV 87.3 MCH 28.6 MCHC 32.7 RDW 13.3 Plt Count 249 MPV 10.6 Neut % (Auto) 25.3 L Lymph % (Auto) 62.3 H [place] % (Auto) 9.1 H Eos % (Auto) 2.8 Baso % (Auto) 0.5 Lymph # (Auto) 4.0 H [place] # (Auto) 0.6 Eos # (Auto) 0.2 Baso # (Auto) 0.03 Absolute Neuts (auto) 1.60 Sodium 141 Potassium 3.4 L Chloride 102 Carbon Dioxide 27 Anion Gap 15 BUN 14 Creatinine 0.7 Est GFR ( Amer) > 60 Est GFR (Non-Af Amer) > 60 Random Glucose 87 Calcium 10.0 Total Bilirubin 0.4 AST 27 ALT 14 Alkaline Phosphatase 81 Troponin I < 0.01 NT-Pro-B Natriuret Pep 150 Total Protein 8.7 H Albumin 4.6 Globulin 4.1 Albumin/Globulin Ratio 1.1 Assessment & Plan - Assessment and Plan (Free Text) Assessment: Pt is a 78 yo F with pmhx significant for HTN, pre-diabetes and questionable dementia who presents for epigastric abd discomfort and dizziness. Plan: Epigastric abd pain - Per family pt has hx of gastritis - Colace - Protonix - Will cont to monitor Chest pain r/o ACS: - Trops x3 - Echo - TSH - Lipid Panel - A1c - ASA 81 qd, 325 given in ED - Cardio consulted Dizziness: - 2/2 medication side effect vs neurogenic vs cardio - orthostatic VS - Donepezil on hold - CTA head and neck - MRI brain - Echo - PT - Meclizine Hx of HTN: - Will hold home meds as pt complained of dizziness PPx: DVT: SCDs GI: Protonix Case seen and discussed with Dr. Afua Neves, PGY-1 <Violeta De Luna R - Last Filed: 12/16/18 20:24> Results - Vital Signs Recent Vital Signs: Last Vital Signs Temp 97.5 F L 12/16/18 14:31 Pulse 68 12/16/18 18:00 Resp 16 12/16/18 18:00 BP 146/79 12/16/18 18:00 Pulse Ox 96 12/16/18 18:00 - Labs Result Diagrams: 12/16/18 14:40 12/16/18 14:40 Labs: Laboratory Results - last 24 hr 12/16/18 12/16/18 12/16/18 14:00 14:35 14:40 WBC 6.3 RBC 4.90 Hgb 14.0 Hct 42.8 MCV 87.3 MCH 28.6 MCHC 32.7 RDW 13.3 Plt Count 249 MPV 10.6 Neut % (Auto) 25.3 L Lymph % (Auto) 62.3 H [place] % (Auto) 9.1 H Eos % (Auto) 2.8 Baso % (Auto) 0.5 Lymph # (Auto) 4.0 H [place] # (Auto) 0.6 Eos # (Auto) 0.2 Baso # (Auto) 0.03 Absolute Neuts (auto) 1.60 Sodium Potassium Chloride Carbon Dioxide Anion Gap BUN Creatinine Est GFR ( Amer) Est GFR (Non-Af Amer) POC Glucose (mg/dL) 100 Random Glucose Calcium Total Bilirubin AST ALT Alkaline Phosphatase Troponin I NT-Pro-B Natriuret Pep Total Protein Albumin Globulin Albumin/Globulin Ratio TSH 3rd Generation 1.96 12/16/18 14:40 WBC RBC Hgb Hct MCV MCH MCHC RDW Plt Count MPV Neut % (Auto) Lymph % (Auto) [place] % (Auto) Eos % (Auto) Baso % (Auto) Lymph # (Auto) [place] # (Auto) Eos # (Auto) Baso # (Auto) Absolute Neuts (auto) Sodium 141 Potassium 3.4 L Chloride 102 Carbon Dioxide 27 Anion Gap 15 BUN 14 Creatinine 0.7 Est GFR ( Amer) > 60 Est GFR (Non-Af Amer) > 60 POC Glucose (mg/dL) Random Glucose 87 Calcium 10.0 Total Bilirubin 0.4 AST 27 ALT 14 Alkaline Phosphatase 81 Troponin I < 0.01 NT-Pro-B Natriuret Pep 150 Total Protein 8.7 H Albumin 4.6 Globulin 4.1 Albumin/Globulin Ratio 1.1 TSH 3rd Generation Attending/Attestation - Attestation I have personally seen and examined this patient.: Yes I have fully participated in the care of the patient.: Yes I have reviewed all pertinent clinical information: Yes Notes (Text): Patient seen and examined by me with resident at 4:50 PM on 12/16/18 in the emergency room Case including HPI, physical exam, and assessment and plan discussed with resident. Agree with above with following additions/corrections. Patient is a 78 year old female with past medical history significant for hypertension, pre-diabetes, hyperlipidemia, gastritis, and dementia that presented to the emergency room with epigastric/chest pain and dizziness. History taken from both patient and patients granddaughter at bedside with patients permission. Around 11AM, patient was cooking and felt warmth from the stove. She felt dizzy and weak suddenly. She took her clothes off and laid down. Ambulance was then called. She denies feeling like the room was spinning or she was spinning. She states she felt more lightheaded. Patient continues to have the same feeling at time of exam. No change in vision or headache. Patient states that she also started to have discomfort in the epigastric/lower chest area when this happened. No radiation of the discomfort. No associated diaphoresis or shortness of breath. Patient states the discomfort is feeling better. No nausea or vomiting. No dysuria. Patient states she is having bowel movements but her stool is hard. Patient states that she took Aricept 10mg by mistake today which she does not normally take. 12 point review of systems reviewed by me. Please see above HPI. All other systems negative. Past medical history: Hypertension, pre-diabetes, hyperlipidemia, dementia, gastritis Past surgical history: Skin graft of left anterior lower extremity Allergies: NKDA Social history: Denies alcohol or tobacco use. No illicit drug use. Family History: Mother and had diabetes and hypertension. Father pa ssed away of old age and was a smoker Medications at home: Norvasc 2.5mg daily. Physical exam: General: Awake and alert sitting up in bed in no acute distress HEENT: Normocephalic, atraumatic. Extraocular muscles intact, pupils equal and reactive, no scleral icterus. Oropharynx is pink and moist. No pharyngeal erythema or exudate appreciated. Neck is supple. Hearing grossly intact. Ears and nose externally unremarkable. Cardiovascular: Regular rhythm.Normal S1 and S2. No murmur, rubs, or gallops appreciated Pulmonary: Normal respiratory effort.No rhonchi, rales, or wheezing appreciated. Gastrointestinal: Soft, nondistended. Nontender. Positive bowel sounds all 4 quadrants. No guarding. Musculoskeletal: Moves all extremities. No calf tenderness. No edema appreciated. Central nervous system: AAOx3, CN 2-12 grossly intact. 5/5 muscle strength all extremities. Dermatologic: Skin warm and dry. Assessment and plan: Patient is a 78 year old female with past medical history significant for hypertension, pre-diabetes, hyperlipidemia, gastritis, and dementia that presented to the emergency room with epigastric/chest pain and dizziness. 1. Dizziness. Lightheadedness. May be secondary to Aricept. Head CT per radiologist showed no acute intracranial hemorrhage, suspect minimal chronic periventricular white matter ischemic changes, mild generalized volume loss, small bubble within the left cavernous sinus likely due to recent intravenous injection. MRI brain pending. CTA head and neck pending. Placed on meclizine prn. Follow up orthostatics. Follow up 2D echo. PT eval and treat. Placed on ASA. 2. Epigastric/Chest pain. Follow up serial troponins. Follow up 2d echo. Cardiology consulted, pending recommendations. Pending TSH, Lipid panel, and HgbA1C. Monitor on telemetry. 3. Constipation. Placed on Colace. 4. Hypertension. Continue home Norvasc. 5. Hypokalemia. Kdur given. Follow up repeat labs in AM. Case was discussed in detail with patient and patients granddaughter at bedside regarding current diagnosis, study results, and treatment plan. All questions answered.
[2018-12-16] MEDS ORDERED: Potassium Chloride 20 mEq ER Tab PO ONE (19:38)
[2018-12-16 21:00] VITALS: BMI 27.1
[2018-12-16] MEDS ORDERED: Pneumococcal 23-Valent Vaccine IM ONE (21:00)
[2018-12-16] MEDS ORDERED: Influenza Vaccine 60 mcg/0.5 mL SYR (4YR UP) IM ONE (21:00)
[2018-12-17 04:32] LABS: BASO # 0.02 K/mm3 (0.0-2.0); BASO % 0.4 % (0.0-3.0); EOS # 0.1 (0.0-0.7); EOS % 2.7 % (1.5-5.0); LYMPH # 2.1 (1.2-3.4); LYMPH % 43.3 % (22.0-35.0); MEAN CELL VOLUME 87.7 fl (80.0-105.0); MEAN CORPUSCULAR HGB CONC 31.9 g/dl (31.0-37.0); MEAN PLATELET VOLUME 10.2 fl (7.0-11.0); MONO # 0.6 (0.1-0.6); RBC 4.64 10^6/uL (3.5-6.1); RED CELL DISTRIBUTION WIDTH 13.3 % (11.5-14.5); WHITE BLOOD COUNT 4.9 10^3/uL (4.5-11.0)
[2018-12-17 04:42] LABS: LDL CHOLESTEROL 147 mg/dL (0-129); TROPONIN I < 0.01 ng/mL
[2018-12-17 04:54] LABS: ALB/GLOB RATIO 1.2 (1.1-1.8); ALBUMIN 4.1 g/dL (3.0-4.8); ALT/SGPT 16 U/L (7-56); AST/SGOT 23 U/L (14-36); BLOOD UREA NITROGEN 11 mg/dL (7-21); CALCIUM 9.3 mg/dL (8.4-10.5); GFR NON-AFRICAN AMERICAN > 60; HDL CHOLESTEROL 46 mg/dL (29-60)
[2018-12-17] MEDS ORDERED: Iodixanol 320 MG/ML 100 ML BOTTLE IV ONE (09:57)
--- NOTE | 2018-12-17 10:54 | CP.PCM.PN ---
<EdinsonJan - Last Filed: 12/17/18 14:40> Subjective - Date & Time of Evaluation Date of Evaluation: 12/17/18 Time of Evaluation: 10:00 - Subjective Subjective: Jan Neves, PGY-1 Medicine Progress Note: Pt was seen and examined this AM at bedside. Pt states that she is feeling better today. She denies feelig any dizziness but does admit to feeling weak. She states that she is able to tolerate her diet and denies an headache, chest pain, SOB, cough, abd pain, n/, c/d or dysuira. Pt does admit to lower back pain. Objective - Vital Signs/Intake and Output Vital Signs (last 24 hours): Temp Pulse Resp BP Pulse Ox 98.0 F 61 20 156/79 H 98 12/17/18 06:00 12/17/18 06:00 12/17/18 06:00 12/17/18 06:00 12/17/18 06:00 Intake and Output: 12/17/18 12/17/18 06:59 18:59 Intake Total 540 Output Total 3 Balance 537 - Medications Medications: Current Medications Acetaminophen (Tylenol 325mg Tab) 650 mg PO Q6H PRN PRN Reason: Pain, moderate (4-7) Amlodipine Besylate (Norvasc) 2.5 mg PO DAILY [facility] Aspirin (Aspirin Chewable) 81 mg PO DAILY [facility] Docusate Sodium (Colace) 100 mg PO BID PRN PRN Reason: Constipation Meclizine HCl (Antivert) 25 mg PO BID PRN PRN Reason: Dizziness - Labs Labs: 12/17/18 04:00 12/17/18 04:00 - Constitutional Appears: Non-toxic, No Acute Distress - Head Exam Head Exam: ATRAUMATIC, NORMAL INSPECTION, NORMOCEPHALIC - Eye Exam Eye Exam: EOMI, Normal appearance, PERRL. absent: Nystagmus, Scleral icterus Pupil Exam: NORMAL ACCOMODATION. absent: Fixed, Irregular, Miosis, Mydriatic - ENT Exam ENT Exam: Mucous Membranes Dry - Respiratory Exam Respiratory Exam: Clear to Auscultation Bilateral, NORMAL BREATHING PATTERN. absent: Accessory Muscle Use, Rales, Rhonchi, Wheezes, Respiratory Distress, Stridor - Cardiovascular Exam Cardiovascular Exam: +S1, +S2. absent: Gallop, Rubs - GI/Abdominal Exam GI & Abdominal Exam: Normal Bowel Sounds, Soft. absent: Distended, Firm, Guarding, Tenderness - Extremities Exam Extremities exam: Positive for: normal capillary refill, pedal pulses present. 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 absent: CVA tenderness (L), CVA tenderness (R) - Neurological Exam Neurological exam: Alert, Oriented x3 - Psychiatric Exam Psychiatric exam: Normal Affect, Normal Mood - Skin Skin Exam: Dry, Normal Color, Warm Assessment & Plan - Assessment and Plan (Free Text) Assessment: Pt is a 78 yo F with pmhx significant for HTN, pre-diabetes and questionable dementia who presents for epigastric abd discomfort and dizziness. Plan: Epigastric abd pain - Per family pt has hx of gastritis - Colace - Protonix - Will cont to monitor Chest pain r/o ACS: - Trops x3 (-) - Echo - TSH - wnl - Lipid Panel - T, Chol: 227, LDL: 147, HDL 46 - A1c - 6.6 - ASA 81 qd, 325 given in ED - Cardio consulted Dizziness: - 2/2 medication side effect vs neurogenic vs cardio - orthostatic VS (-) - Donepezil on hold - CTA head and neck - MRI brain - Echo - PT - Meclizine Hx of HTN: - Will hold home meds as pt complained of dizziness PPx: DVT: SCDs GI: Protonix Case seen and discussed with Dr. Afua Neves, PGY-1 <Violeta De Luna R - Last Filed: 12/17/18 16:18> Objective - Vital Signs/Intake and Output Vital Signs (last 24 hours): Temp Pulse Resp BP Pulse Ox 98 F 63 18 130/74 98 12/17/18 12:00 12/17/18 12:00 12/17/18 12:00 12/17/18 12:00 12/17/18 06:00 Intake and Output: 12/17/18 12/17/18 06:59 18:59 Intake Total 540 Output Total 3 Balance 537 - Medications Medications: Current Medications Acetaminophen (Tylenol 325mg Tab) 650 mg PO Q6H PRN PRN Reason: Pain, moderate (4-7) Last Admin: 12/17/18 10:54 Dose: 650 mg Amlodipine Besylate (Norvasc) 2.5 mg PO DAILY [facility] Last Admin: 12/17/18 10:55 Dose: 2.5 mg Aspirin (Aspirin Chewable) 81 mg PO DAILY [facility] Last Admin: 12/17/18 10:55 Dose: 81 mg Atorvastatin Calcium (Lipitor) 40 mg PO DIN [facility] Docusate Sodium (Colace) 100 mg PO BID PRN PRN Reason: Constipation Last Admin: 12/17/18 10:54 Dose: 100 mg Meclizine HCl (Antivert) 25 mg PO BID PRN PRN Reason: Dizziness - Labs Labs: 12/17/18 04:00 12/17/18 04:00 Attending/Attestation - Attestation I have personally seen and examined this patient.: Yes I have fully participated in the care of the patient.: Yes I have reviewed all pertinent clinical information, including history, physical exam and plan: Yes Notes (Text): Patient seen and examined by me with resident at 9:15AM on 12/17/18. Case including HPI, physical exam, and assessment and plan discussed with resident. Agree with above with following additions/corrections. Patient is a 78 year old female with past medical history significant for h ypertension, pre-diabetes, hyperlipidemia, gastritis, and dementia that presented to the emergency room with epigastric/chest pain and dizziness. stockroom coordinator Luis, # [id number] used for translation. Patient states that she is feeling better today. Feels weak. Dizziness and lightheadedness improved. Patient states she feels weak. No headaches or change in vision. No fevers or chills. No nausea, vomiting, or abdominal pain. No dysuria. Physical exam: General: Awake and alert sitting up in bed in no acute distress HEENT: Normocephalic, atraumatic. Extraocular muscles intact, pupils equal and reactive, no scleral icterus. Oropharynx is pink and moist. No pharyngeal erythema or exudate appreciated. Neck is supple. Hearing grossly intact. Ears and nose externally unremarkable. Cardiovascular: Regular rhythm.Normal S1 and S2. No murmur, rubs, or gallops appreciated Pulmonary: Normal respiratory effort.No rhonchi, rales, or wheezing appreciated. Gastrointestinal: Soft, nondistended. Nontender. Positive bowel sounds all 4 quadrants. No guarding. Musculoskeletal: Moves all extremities. No calf tenderness. No edema appreciated. Central nervous system: AAOx3, CN 2-12 grossly intact. 5/5 muscle strength all extremities. Dermatologic: Skin warm and dry. Assessment and plan: Patient is a 78 year old female with past medical history significant for hypertension, pre-diabetes, hyperlipidemia, gastritis, and dementia that presented to the emergency room with epigastric/chest pain and dizziness. 1. Dizziness. Lightheadedness. May be secondary to having taken a dose of Aricept. Resolved now. Continue ASA. Pending MRI brain and CTA head and neck. Pending 2D echo. Pending PT eval. Head CT per radiologist showed no acute intracranial hemorrhage, suspect minimal chronic periventricular white matter ischemic changes, mild generalized volume loss, small bubble within the left c avernous sinus likely due to recent intravenous injection. 2. Epigastric/Chest pain. Resolved. Serial troponins within normal limits. Pending 2d echo. Cardiology recommendations appreciated. TSH within normal limits. LDL elevated, started on Lipitor. HgbA1C 6.6, patient states she is pre- diabetic and controlling with diet and exercise. 3. Constipation. Continue Colace. 4. Hypertension. Continue home Norvasc. 5. Hypokalemia. Resolved. Continue to monitor Case was discussed in detail with patient regarding current diagnosis, study results, and treatment plan. All questions answered.
--- NOTE | 2018-12-17 13:10 | CT ---
Date of service: 12/17/2018 PROCEDURE: CT Angiography of the neck and brain with contrast HISTORY: Dizziness, r/o atherosclerotic disease COMPARISON: Comparison made with CT scan and MRI of the brain dated 12/16/2018 and 12/17/2018 respectively. TECHNIQUE: Contiguous axial images of the neck were obtained from the level of the skull-base to the superior mediastinum in the arteriographic phase of enhancement. Coronal and sagittal reformats or also generated. IV contrast dose: 96 cc Visipaque 320 Radiation dose: Total exam DLP = 491.56 mGy-cm. This CT exam was performed using one or more of the following dose reduction techniques: Automated exposure control, adjustment of the mA and/or kV according to patient size, and/or use of iterative reconstruction technique. FINDINGS: The visualized aortic arch widely patent despite some mild aortic atherosclerotic calcification- mural plaque. There are also some calcified plaque changes seen at the origin of the left subclavian. Right brachiocephalic and left common carotid artery arise from a common trunk.. The common carotid arteries are widely patent. Mild moderate calcified plaque seen at the level of the left carotid bifurcation/proximal left internal carotid artery with estimated narrowing approximately 50%. Calcified atherosclerotic plaque changes seen at the right carotid bifurcation with more significant calcified plaque at the origin and proximal right internal carotid artery with estimated narrowing approximately. The distal internal carotid arteries including the petrous cavernous and supraclinoid segments are widely patent. There is slight ectasia of the left cavernous carotid segment a compared to the right side. The visualized major branches of the [id number] are patent of with asymmetry of the A1 segments left-sided which is slightly larger in caliber/more dominant than the right-side. There is asymmetry of the M1 segments, left-sided which is slightly larger in caliber more dominant than the slightly longer and more dominant in caliber compared to the right side. In addition, there is also slight asymmetry of the distal branches, right-sided which exhibits more distal branches compared the left. No evidence of large aneurysm nor vascular malformation. OTHER FINDINGS: Redemonstrated are changes of bilateral cataract surgery. There is a small semi lunar shaped enhancing extra-axial lesion along left sphenoid ridge which measures approximately 6.7 x 3.0 cm likely representing an incidental small the meningioma. IMPRESSION: There are calcified atherosclerotic plaque changes seen at both carotid bifurcations proximal internal carotid arteries left-sided which results in approximately 50 % diameter stenosis and on the right approximately 65 % diameter stenosis Slightly ectatic left cavernous segment. Mild asymmetry of the M1 segments as described. 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
--- NOTE | 2018-12-17 13:34 | MRI ---
Date of service: 12/17/2018 PROCEDURE: MRI BRAIN WITHOUT CONTRAST HISTORY: Dizziness COMPARISON: Correlation made with concurrent CTA brain and prior CT scan of the brain 413 19. TECHNIQUE: Multiplanar, multisequence MR images of the brain were obtained without intravenous contrast enhancement. FINDINGS: HEMORRHAGE: No acute parenchymal, subarachnoid or extra-axial hemorrhage. No evidence of hemosiderin deposition identified on gradient echo weighted sequence. DWI: No evidence of an acute or early subacute infarction seen on diffusion imaging. BRAIN PARENCHYMA: Minimal prolonged T2 signal changes seen in the periventricular white matter which may represent a combination of some FLAIR related CSF interface artifact and possibly some minimal chronic small vessel disease. Remainder of the brain is unremarkable. Ventricular and sulcal size are within range of normal for this patient's stated age. Previously suspected small meningioma left lateral sphenoid bone above the orbital apex is less well seen on this study compared to CTA which demonstrated the lesion due to presence of intravenous contrast enhancement VENTRICLES: No obstructive hydrocephalus. CRANIUM: Unremarkable. ORBITS: Redemonstrated are changes of bilateral cataract surgery. PARANASAL SINUSES/MASTOIDS: Clear VASCULAR SYSTEM: Skull base flow voids intact. OTHER FINDINGS: None. IMPRESSION: Acute intracranial hemorrhage or infarct. Minimal if any chronic periventricular white matter ischemic changes. Tiny meningioma left sphenoid bone poorly seen due to the lack of circulating intravenous contrast material. Please refer to concurrent CTA of the brain for additional details.
--- NOTE | 2018-12-17 23:46 | CON ---
DATE OF CONSULTATION: 12/17/2018 HISTORY OF PRESENT ILLNESS: The patient is a 78-year-old female who is prediabetic, has history of hypertension, who was admitted because of dizziness and weakness as well as slurring speech according to the patient herself. The patient denies any history of stroke or heart attack in the past. PAST MEDICAL HISTORY: History of skin grafting to the left lower extremity many years ago. History of hypertension. SOCIAL HISTORY: Nonsmoker, nondrinker. She lives by herself. However, she has a lamp developer who sleeps with her at night and her daughter lives in [facility]. MEDICATIONS: Antivert 25 mg twice a day, aspirin 81 mg once a day, Colace 100 mg twice a day, Norvasc 2.5 mg once a day. REVIEW OF SYSTEMS: No nausea or vomiting. No recent fall and no retrosternal chest pain. PHYSICAL EXAMINATION: GENERAL: The patient is an elderly female who does not appear to be in acute distress. VITAL SIGNS: Blood pressure 130/74, heart rate 63, temperature 98, respirations 18. HEENT: Normocephalic. NECK: No JVD. CHEST: Clear. HEART: S1 and S2, regular. EXTREMITIES: No edema. LABORATORY DATA: Today's hemoglobin and hematocrit 15 and 48.7. White count and platelet count are within normal limits. Today's SMA-7 is entirely within normal limits. Three sets of troponins are negative. LDL cholesterol is elevated at 147 and total cholesterol is elevated to 127. TSH level is within normal limits. EKG revealed sinus rhythm at the rate of 65. Incomplete right bundle branch block. There is minimal voltage criteria for LVH. Head CT scan without contrast, no acute intracranial hemorrhage. Suspect minimal chronic periventricular white matter ischemic changes. Mild generalized volume loss. Brain MRI without contrast. The report acute intracranial hemorrhage or infarct, which is meant to be no acute intracranial hemorrhage or infarct. Minimal if any chronic periventricular white matter ischemic changes. Tiny meningioma left sphenoid bone poorly seen due to the lack of circulating intravenous contrast material. Please refer to concurrent CT angio of the brain for additional details. CT angio of the head and neck: Impression: There are calcified atherosclerotic plaque changes seen at both carotid bifurcations proximal internal carotid arteries left sided, which results in approximately 50% diameter stenosis, and on the right side approximately 65% diameter stenosis. Slightly ectatic left cavernous segment. Mild asymmetry of the M1 segment. Findings most consistent with small semilunar-shaped meningioma. ASSESSMENT: 1. Dizziness and weakness on admission was questionable slurring speech. 2. Calcific carotid plaque with 65% of diameter stenosis on the right side. 3. Hypertension. 4. Hyperlipidemia. RECOMMENDATIONS: Continue aspirin 81 mg once a day, Norvasc 2.5 mg once a day. Start Lipitor at 40 mg orally once a day. Obtain an echocardiograph study. Moe Hayes MD
[2018-12-18 00:25] VITALS: O2SAT 99
[2018-12-18 07:14] LABS: BASO # 0.02 K/mm3 (0.0-2.0); BASO % 0.5 % (0.0-3.0); EOS # 0.1 (0.0-0.7); EOS % 2.9 % (1.5-5.0); HEMOGLOBIN 13.5 g/dL (12.0-16.0); LYMPH # 2.4 (1.2-3.4); LYMPH % 57.8 % (22.0-35.0); MEAN CELL VOLUME 87.7 fl (80.0-105.0); MEAN CORPUSCULAR HEMOGLOBIN 28.1 pg (25.0-35.0); MEAN PLATELET VOLUME 10.4 fl (7.0-11.0); MONO # 0.4 (0.1-0.6); MONO % 9.3 % (1.0-6.0); RBC 4.81 10^6/uL (3.5-6.1); RED CELL DISTRIBUTION WIDTH 13.3 % (11.5-14.5); WHITE BLOOD COUNT 4.2 10^3/uL (4.5-11.0)
--- NOTE | 2018-12-18 07:21 | CARD ---
APPROVED REPORT Date of service: 12/16/2018 EKG Measurement Heart [id number] <Conclusion> Poor data quality, interpretation may be adversely affected Normal sinus rhythm Incomplete right bundle branch block Minimal voltage criteria for LVH, may be normal variant Borderline ECG
[2018-12-18 08:05] LABS: ALB/GLOB RATIO 1.1 (1.1-1.8); ALT/SGPT 12 U/L (7-56); AST/SGOT 26 U/L (14-36); BLOOD UREA NITROGEN 15 mg/dL (7-21); CALCIUM 9.1 mg/dL (8.4-10.5); GFR NON-AFRICAN AMERICAN > 60
[2018-12-18] MEDS ORDERED: Benzocaine/Menthol (Cepacol) Lozenge MT PRN (10:52)
[2018-12-18] MEDS ORDERED: guaiFENesin 600 mg ER Tab PO SCH (11:00)
[2018-12-18 12:17] VITALS: BP 136/78; PULSE 59; RESP 19; TEMP 97.3
--- NOTE | 2018-12-18 13:10 | PN ---
DATE: 12/18/2018 REASON FOR CONSULTATION AND FOLLOWUP: Cardiac evaluation, admitted with the dizziness and weakness slurring of speech. The patient denies any chest pain or shortness of breath. Denies any palpitation. OBJECTIVE: GENERAL: Not in apparent distress. Sitting in chair. VITAL SIGNS: Temperature afebrile. Heart rate 62 and blood pressure 146/86. HEENT: PERRLA. Extraocular muscles intact. NECK: Supple. No carotid bruit. No thyromegaly. CHEST: Clear to auscultation. HEART: S1 and S2, regular. ABDOMEN: Soft. EXTREMITIES: Clubbing and cyanosis negative. LABORATORY DATA: EKG shows normal sinus, heart rate 65 incomplete right bundle-branch block. Blood workup WBC 4.2, hemoglobin 13.5, hematocrit 42.2 and platelet count 232. Chemistry shows sodium 139, potassium 4.0, chloride 104, carbon dioxide 24, anion gap of 10, BUN 15, creatinine 0.8, troponin 0.01 x3 negative. The patient had brain MRI done yesterday that revealed acute intracranial possible no acute intracranial hemorrhagic infarct, minimally if any chronic periventricular white matter ischemic changes noted. Head and neck CTA mildly symmetric findings consistent with small semi lacunar shaped meningioma left sphenoid bone. IMPRESSION: A 72-year-old female with prediabetic history of hypertension, admitted because of feeling weakness and dizziness, so far no evidence of acute myocardial infarction, hypertension, hyperlipidemia, given the multiple risk factors of coronary artery disease suggest a stress test as outpatient once the patient's echo done, the patient can be discharge and followup echo as outpatient. The patient's lipid profile showed cholesterol 227, LDL 147 and HDL 46. Continue baby aspirin, put atorvastatin and we will discontinue telemetry once the echo is done. The patient would be discharged home. Followup as outpatient. Arrangement has been made for a stress test as outpatient. Thank you Dr. Mukherjee for providing us the opportunity in taking care of the patient, Williams Gilman. We will discontinue telemetry. Terry Clark MD
--- NOTE | 2018-12-18 14:11 | CP.PCM.DIS ---
<Jan Neves - Last Filed: 12/18/18 21:36> Provider - Provider Date of Admission: 12/16/18 16:10 Attending physician: Hal Moseley MD Consults: 12/16/18 17:57 Cardiology Consult Routine Comment: Consulting Provider: Terry Clark Consulting Physician: Terry Clark Reason for Consult: epigatric pain/chest pain, dizziness 12/16/18 21:00 Inpatient [employer] Core Measures Referral Routine Comment: Physician Instructions: Reason For Exam: EVALUATION Transition In Care/Readmission Reduction Routine Comment: Physician Instructions: Reason For Exam: EVALUATION 12/18/18 08:50 Neurology Consult Routine Comment: Consulting Provider: Onur Tijerina Consulting Physician: Onur Tijerina Reason for Consult: Stenosis of R cartoid Art 12/18/18 13:40 Podopediatrician [Case Management Referral] Routine Comment: Physician Instructions: Reason For Exam: requires home with services Reason for Referral: Discharge Planning Time Spent in preparation of Discharge (in minutes): 45 Diagnosis - Discharge Diagnosis (1) Chest pain Status: Acute (2) Dizziness Status: Acute Hospital Course - Lab Results Lab Results: Most Recent Lab Values WBC 4.2 10^3/uL (4.5-11.0) L 12/18/18 07:05 RBC 4.81 10^6/uL (3.5-6.1) 12/18/18 07:05 Hgb 13.5 g/dL (12.0-16.0) 12/18/18 07:05 Hct 42.2 % (36.0-48.0) 12/18/18 07:05 MCV 87.7 fl (80.0-105.0) 12/18/18 07:05 MCH 28.1 pg (25.0-35.0) 12/18/18 07:05 MCHC 32.0 g/dl (31.0-37.0) 12/18/18 07:05 RDW 13.3 % (11.5-14.5) 12/18/18 07:05 Plt Count 232 10^3/uL (120.0-450.0) 12/18/18 07:05 MPV 10.4 fl (7.0-11.0) 12/18/18 07:05 Neut % (Auto) 29.5 % (50.0-68.0) L 12/18/18 07:05 Lymph % (Auto) 57.8 % (22.0-35.0) H 12/18/18 07:05 [place] % (Auto) 9.3 % (1.0-6.0) H 12/18/18 07:05 Eos % (Auto) 2.9 % (1.5-5.0) 12/18/18 07:05 Baso % (Auto) 0.5 % (0.0-3.0) 12/18/18 07:05 Lymph # (Auto) 2.4 (1.2-3.4) 12/18/18 07:05 [place] # (Auto) 0.4 (0.1-0.6) 12/18/18 07:05 Eos # (Auto) 0.1 (0.0-0.7) 12/18/18 07:05 Baso # (Auto) 0.02 K/mm3 (0.0-2.0) 12/18/18 07:05 Absolute Neuts (auto) 1.24 (1.4-6.5) L 12/18/18 07:05 Sodium 139 mmol/L (132-148) 12/18/18 05:00 Potassium 4.1 mmol/L (3.6-5.0) 12/18/18 05:00 Chloride 104 mmol/L (98-107) 12/18/18 05:00 Carbon Dioxide 29 mmol/L (21-33) 12/18/18 05:00 Anion Gap 10 (10-20) 12/18/18 05:00 BUN 15 mg/dL (7-21) 12/18/18 05:00 Creatinine 0.8 mg/dl (0.7-1.2) 12/18/18 05:00 Est GFR ( Amer) > 60 12/18/18 05:00 Est GFR (Non-Af Amer) > 60 12/18/18 05:00 POC Glucose (mg/dL) 118 mg/dL (65-110) H 12/18/18 11:48 Random Glucose 100 mg/dL (70-110) 12/18/18 05:00 Hemoglobin A1c 6.6 % (4.2-6.5) H 12/16/18 14:00 Calcium 9.1 mg/dL (8.4-10.5) 12/18/18 05:00 Phosphorus 4.2 mg/dL (2.5-4.5) 12/18/18 05:00 Magnesium 2.3 mg/dL (1.7-2.2) H 12/18/18 05:00 Total Bilirubin 0.4 mg/dL (0.2-1.3) 12/18/18 05:00 AST 26 U/L (14-36) 12/18/18 05:00 ALT 12 U/L (7-56) 12/18/18 05:00 Alkaline Phosphatase 62 U/L (38-126) 12/18/18 05:00 Troponin I < 0.01 ng/mL 12/17/18 04:00 NT-Pro-B Natriuret Pep 150 pg/mL (0-450) 12/16/18 14:40 Total Protein 7.6 g/dL (5.8-8.3) 12/18/18 05:00 Albumin 4.0 g/dL (3.0-4.8) 12/18/18 05:00 Globulin 3.6 gm/dL 12/18/18 05:00 Albumin/Globulin Ratio 1.1 (1.1-1.8) 12/18/18 05:00 Triglycerides 108 mg/dL (35-160) 12/17/18 04:00 Cholesterol 227 mg/dL (130-200) H 12/17/18 04:00 LDL Cholesterol Direct 147 mg/dL (0-129) H 12/17/18 04:00 HDL Cholesterol 46 mg/dL (29-60) 12/17/18 04:00 TSH 3rd Generation 1.96 mIU/mL (0.46-4.68) 12/16/18 14:00 - Hospital Course Hospital Course: Upon Admission: Pt is a 40 yo M with pmhx of HTN, DM, CAD s/p stent on 07/21, schizophrenia, and anxiety who presents for chest tightness which started while he was playing basketball this afternoon. Pt states that about 30 mins prior to presentation in the ER the pt was playing basketball with his friends and the noted that he was experiencing some chest tightness. Pt describes the pain as midsternal chest pain that is located at the xyphoid process, pain is not worsened with activity and does not radiate. He states that the pain is similar to one that he has experienced in the past, and states that he believes that its related to him not eating all day. He reports that when the pain started it was a 7/10 and continues to be a 7/10 now. Pt also admits to being non-compliant with his diabetes medications and states that he has been drinking sugar filled drinks all day. Pt at this time is denying fevers, chills, headache, numbness, tingling, weakness, SOB, palpitations, abd pain, n/v, c/d. Pt admits to non-radiating, chest tightness. Hospital Course: Pt was being worked up for her dizziness and chest tightness. Cardio and neuro were consulted. CTA Head and neck and MRI Brain was ordered. Results noted in c mercado, but neurology noted the stenosis of 65% of the R carotid artery. Per neuro the pt is cleared for d/c on ASA and lipitor and the pt is also told to follow up with neuro outpt to continue to monitor the stenosis. Cardio got echo on the pt. Cardio cleared the pt for follow up as an outpt as the trops were trended x3 and found to be negative. Pt is told to follow up on echo results with cardio. Pt was informed about the results of the test and what to follow up on and to follow up echo resutls with cardio after d/c as well as to follow up with her PMD. Pt expressed understanding and agreement of follow up plan. Pt was informed about plan for d/c and the pt expressed understanding and agreement with the plan for d/c. All of the pts questions and concerns were addressed prior to d/c. Discharge Exam - Head Exam Head Exam: ATRAUMATIC, NORMAL INSPECTION, NORMOCEPHALIC - Eye Exam Eye Exam: EOMI, Normal appearance, PERRL - Respiratory Exam Respiratory Exam: Clear to PA & Lateral, NORMAL BREATHING PATTERN, UNREMARKABLE. absent: Accessory Muscle Use, Rales, Rhonchi, Wheezes, Respiratory Distress - Cardiovascular Exam Cardiovascular Exam: +S1, +S2 - GI/Abdominal Exam GI & Abdominal Exam: Normal Bowel Sounds, Soft. absent: Distended, Firm, Guarding, Rigid, Tenderness - Back Exam Back exam: NORMAL INSPECTION. 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 Iqbal within 3-5 days from discharge. - Please follow up with your unit assembler, Dr. Clark within 3-5 days of disc harge. You will need to be seen for an out patient stress test. Please follow up with your echocardiogram (ultrasound of heart) results with Dr. Clark as well. - Please follow up with your neurologist, Dr. Tijerina within 3-5 days of discharge. You will need to be followed up for some narrowing of your arteries in the neck. - You have been having complaints for cough so you will be given robitussin and cepacol to help with your sore throat. - If you have any new or returning symptoms please return to your nearest emergency department. - Pngase en contacto con quiroga mdico de atencin primaria, el Dr. Griffin, en un plazo de 3 a 5 cardenas desde el wes. - Por favor, odalys un seguimiento con quiroga cardilogo, el Dr. Clark, dentro de los 3-5 cardenas posteriores al wes. Deber ser visto para perez prueba de esfuerzo ambulatoria. Por favor, siga con los resultados de quiroga ecocardiograma (ultrasonido del corazn) con el Dr. Eduardo fitzgerald. - Por favor odalys un seguimiento con quiroga neurlogo, el Dr. Tijerina, dentro de los 3- 5 cardenas posteriores al wes. Deber ser seguido por algn estrechamiento de urmila arterias en el kristopher. - De [place] tenido quejas por toser, por lo que se le administrar robitussin y cepacol para ayudarlo con el dolor de garganta. - Si tiene algn sntoma nuevo o recurrente, regrese al servicio de urgencias ms rodger. Referrals: Terry Clark MD [Staff Provider] - Onur Tijerina MD [Staff Provider] - <Hal Moseley - Last Filed: 12/19/18 13:14> Provider - Provider Date of Admission: 12/16/18 16:10 Attending physician: Hal Moseley MD Consults: 12/16/18 17:57 Cardiology Consult Routine Comment: Consulting Provider: Terry Clark Consulting Physician: Terry Clark Reason for Consult: epigatric pain/chest pain, dizziness 12/16/18 21:00 Inpatient [employer] Core Measures Referral Routine Comment: Physician Instructions: Reason For Exam: EVALUATION Transition In Care/Readmission Reduction Routine Comment: Physician Instructions: Reason For Exam: EVALUATION 12/18/18 08:50 Neurology Consult Routine Comment: Consulting Provider: Onur Tijerina Consulting Physician: Onur Tijerina Reason for Consult: Stenosis of R cartoid Art 12/18/18 13:40 Podopediatrician [Case Management Referral] Routine Comment: Physician Instructions: Reason For Exam: requires home with services Reason for Referral: Discharge Planning Hospital Course - Lab Results Lab Results: Most Recent Lab Values WBC 4.2 10^3/uL (4.5-11.0) L 12/18/18 07:05 RBC 4.81 10^6/uL (3.5-6.1) 12/18/18 07:05 Hgb 13.5 g/dL (12.0-16.0) 12/18/18 07:05 Hct 42.2 % (36.0-48.0) 12/18/18 07:05 MCV 87.7 fl (80.0-105.0) 12/18/18 07:05 MCH 28.1 pg (25.0-35.0) 12/18/18 07:05 MCHC 32.0 g/dl (31.0-37.0) 12/18/18 07:05 RDW 13.3 % (11.5-14.5) 12/18/18 07:05 Plt Count 232 10^3/uL (120.0-450.0) 12/18/18 07:05 MPV 10.4 fl (7.0-11.0) 12/18/18 07:05 Neut % (Auto) 29.5 % (50.0-68.0) L 12/18/18 07:05 Lymph % (Auto) 57.8 % (22.0-35.0) H 12/18/18 07:05 [place] % (Auto) 9.3 % (1.0-6.0) H 12/18/18 07:05 Eos % (Auto) 2.9 % (1.5-5.0) 12/18/18 07:05 Baso % (Auto) 0.5 % (0.0-3.0) 12/18/18 07:05 Lymph # (Auto) 2.4 (1.2-3.4) 12/18/18 07:05 [place] # (Auto) 0.4 (0.1-0.6) 12/18/18 07:05 Eos # (Auto) 0.1 (0.0-0.7) 12/18/18 07:05 Baso # (Auto) 0.02 K/mm3 (0.0-2.0) 12/18/18 07:05 Absolute Neuts (auto) 1.24 (1.4-6.5) L 12/18/18 07:05 Sodium 139 mmol/L (132-148) 12/18/18 05:00 Potassium 4.1 mmol/L (3.6-5.0) 12/18/18 05:00 Chloride 104 mmol/L (98-107) 12/18/18 05:00 Carbon Dioxide 29 mmol/L (21-33) 12/18/18 05:00 Anion Gap 10 (10-20) 12/18/18 05:00 BUN 15 mg/dL (7-21) 12/18/18 05:00 Creatinine 0.8 mg/dl (0.7-1.2) 12/18/18 05:00 Est GFR ( Amer) > 60 12/18/18 05:00 Est GFR (Non-Af Amer) > 60 12/18/18 05:00 POC Glucose (mg/dL) 118 mg/dL (65-110) H 12/18/18 11:48 Random Glucose 100 mg/dL (70-110) 12/18/18 05:00 Hemoglobin A1c 6.6 % (4.2-6.5) H 12/16/18 14:00 Calcium 9.1 mg/dL (8.4-10.5) 12/18/18 05:00 Phosphorus 4.2 mg/dL (2.5-4.5) 12/18/18 05:00 Magnesium 2.3 mg/dL (1.7-2.2) H 12/18/18 05:00 Total Bilirubin 0.4 mg/dL (0.2-1.3) 12/18/18 05:00 AST 26 U/L (14-36) 12/18/18 05:00 ALT 12 U/L (7-56) 12/18/18 05:00 Alkaline Phosphatase 62 U/L (38-126) 12/18/18 05:00 Troponin I < 0.01 ng/mL 12/17/18 04:00 NT-Pro-B Natriuret Pep 150 pg/mL (0-450) 12/16/18 14:40 Total Protein 7.6 g/dL (5.8-8.3) 12/18/18 05:00 Albumin 4.0 g/dL (3.0-4.8) 12/18/18 05:00 Globulin 3.6 gm/dL 12/18/18 05:00 Albumin/Globulin Ratio 1.1 (1.1-1.8) 12/18/18 05:00 Triglycerides 108 mg/dL (35-160) 12/17/18 04:00 Cholesterol 227 mg/dL (130-200) H 12/17/18 04:00 LDL Cholesterol Direct 147 mg/dL (0-129) H 12/17/18 04:00 HDL Cholesterol 46 mg/dL (29-60) 12/17/18 04:00 TSH 3rd Generation 1.96 mIU/mL (0.46-4.68) 12/16/18 14:00 Attending/Attestation - Attestation I have personally seen and examined this patient.: Yes I have fully participated in the care of the patient.: Yes I have reviewed all pertinent clinical information, including history, physical exam and plan: Yes Notes (Text): 12/19/18 Attending note; Patient seen and examined in room 275. Patient is alert and awake. Patient's granddaughter by the bedside. Denies any headache, dizziness. Denies any nausea, vomiting Denies any urinary symptoms. ambulating without difficulty. Patient is a 78 year old female with past medical history significant for hypertension, pre-diabetes, hyperlipidemia, gastritis, and dementia that presented to the emergency room with epigastric/chest pain and dizziness. 1. Dizziness. Lightheadedness. May be secondary to having taken a dose of Aricept. Resolved now. Continue ASA. MRI show no acute infarct . CT of the head and neck showed 65% right-sided stenosis. Neurology evaluation appreciated. Needs outpatient follow-up with vascular surgery. Preliminary echocardiogram with normal ejection fraction. Case discussed with unit assembler in detail. Patient can be discharged home with close outpatient follow-up. Head CT showed no acute intracranial hemorrhage, suspect minimal chronic periventricular white matter ischemic changes, mild generalized volume loss, small bubble within the left cavernous sinus likely due to recent intravenous injection. 2. Hypertension. Continue home Norvasc. 3. Hypokalemia. Resolved. Continue to monitor 4. Gait Instability; physical therapy evaluation appreciated. Home services recommended. Case discussed with manager of case management for home service arrangements. Upon discharge the patient will follow up with PMD Dr. Iqbal.
--- NOTE | 2018-12-18 17:04 | CARD ---
APPROVED REPORT Date of service: 12/18/2018 EXAM: Two-dimensional and M-mode echocardiogram with Doppler and color Doppler. INDICATION Chest Pain 2D DIMENSIONS Left Atrium (2D)3.3 (1.6-4.0cm)IVSd1.2 (0.7-1.1cm) LVDd4.4 (3.9-5.9cm)PWd1.0 (0.7-1.1cm) LVDs3.1 (2.5-4.0cm)FS (%) 28.3 % LVEF (%)54.9 (>50%) M-Mode DIMENSIONS Aortic Root2.00 (2.2-3.7cm)Aortic Cusp Exc.1.40 (1.5-2.0cm) Aortic Valve AoV Peak Kftjyqlo793.0cm/Andi Peak GR.10mmHg Mitral Valve MV E Fikytnnr45.7cm/sMV A Plluyjks19.0cm/sE/A ratio0.6 TDI E/Lateral E'0.0E/Medial E'0.0 Tricuspid Valve TR Peak Aendzgpq835ig/sRAP [id number] Peak Gr.23mmHg [id number] LEFT VENTRICLE The left ventricle is normal size. There is borderline concentric left ventricular hypertrophy. Proximal septal thickening is noted, but no Evidence of IHSS. The left ventricular function is normal.EF-55-60% There is normal LV segmental wall motion. Transmitral Doppler flow pattern is Grade III-reversible restrictive diastolic dysfunction. No left ventricle thrombus noted on this study. There is no ventricular septal defect visualized. There is no left ventricular aneurysm. There is no mass noted in the left ventricle. RIGHT VENTRICLE The right ventricle is normal size. There is normal right ventricular wall thickness. The right ventricular systolic function is normal. ATRIA The left atrium size is normal. The right atrium size is normal. The interatrial septum is intact with no evidence for an atrial septal defect. AORTIC VALVE The aortic valve is normal in structure. No aortic regurgitation is present. There is no aortic valvular stenosis. There is no aortic valvular vegetation. MITRAL VALVE The mitral valve is thickened but opens well. Mitral regurgitation is trace. There is no mitral valve stenosis. There is no evidence of mitral valve prolapse. TRICUSPID VALVE The tricuspid valve leaflets are thickened , but open well. There is trace tricuspid regurgitation.RVSP-35 mmof hg. There is no tricuspid valve stenosis. There is no tricuspid valve prolapse or vegetation. PULMONIC VALVE The pulmonary valve is normal in structure. There is no pulmonic valvular regurgitation. There is no pulmonic valvular stenosis. GREAT VESSELS The aortic root is normal in size. The ascending aorta is normal in size. The pulmonary artery is normal. The IVC is normal in size and collapses >50% with inspiration. PERICARDIAL EFFUSION There is no pleural effusion. There is no pericardial effusion. <Conclusion> Normal chamber Size. EF-55-60% Trace MR/TR/ RVSp-35 mmof hg.
--- NOTE | 2018-12-18 18:08 | CP.PCM.CON ---
<Masoud Leblanc - Last Filed: 12/18/18 17:54> History of Present Illness - History of Present Illness History of Present Illness: Neuro consult note: Benji, PGY - 2 Reason for consult: Dizziness 78 F with pertinent medical history of questionable dementia on donepezil presented to [facility] on 12/16 s/p a bout of dizziness. Patient describes the incident as more of a 'weakness' that came on as she was cooking dinner. Patient denies falling or hitting her head, as well as denies loss of consciousness. She denies biting her tongue or losing control of bowel or bladder. She does state that she took her Donepezil that day for the first time in a long time. Of note, patient has jail chronic back pain; MRI LS Spine from 2017 shows L sided stenosis at L5-S1 facets. ROS: 12 point ROS obtained and negative except as per HPI SHx: Skin graft from lateral thigh to L ant tabares 2/2 infection of skin MHx: HTN, DM on this admission with A1C at 6.6, L sided stenosis at L5- S1, and questionable dementia All: NKDA Soc: Denies any tobacco use hx, denies etoh or illicit drug use Home Meds: Norvasc 2.5mg qd, Donepizil 10 (first time taking) Fam Hx: Non-contributory PMD: Dr. Iqbal Pharm: [facility] Past Patient History - Infectious Disease Hx of Infectious Diseases: None - Tetanus Immunizations Tetanus Immunization: Unknown - Past Social History Smoking Status: Never Smoked - CARDIAC Hx Cardiac Disorders: Yes Hx Hypertension: Yes - PULMONARY Hx Respiratory Disorders: No - NEUROLOGICAL Hx Neurological Disorder: Yes Hx Dementia: Yes - HEENT Hx HEENT Problems: Yes Hx Cataracts: Yes (BILATERAL SX) - RENAL Hx Chronic Kidney Disease: No - ENDOCRINE/METABOLIC Hx Diabetes Mellitus Type 2: Yes - HEMATOLOGICAL/ONCOLOGICAL Hx Blood Disorders: No - INTEGUMENTARY Hx Dermatological Problems: No Other/Comment: LEFT MID TABARES 6 X 3 CM SKIN GRAFT,TAKEN FROM LEFT MID THIGH.A NON HEALING WOUND. - MUSCULOSKELETAL/RHEUMATOLOGICAL Hx Musculoskeletal Disorders: Yes Hx Back Pain: Yes Hx Falls: Yes - GASTROINTESTINAL Hx Gastrointestinal Disorders: Yes (CONSTIPATION) - GENITOURINARY/GYNECOLOGICAL Hx Genitourinary Disorders: No - PSYCHIATRIC Hx Psychophysiologic Disorder: No Hx Substance Use: No - SURGICAL HISTORY Hx Surgeries: Yes Hx Musculoskeletal Surgery: Yes (left leg) Other/Comment: BILATERAL CATARACT SX. - ANESTHESIA Hx Anesthesia: Yes Hx Anesthesia Reactions: No Hx Malignant Hyperthermia: No Meds Home Medications: Home Medication List Medication Instructions Recorded Confirmed Type Aspirin [Aspirin Chewable] 81 mg PO DAILY chew 12/18/18 Rx Atorvastatin [Lipitor] 40 mg PO DIN 30 Days #30 tab 12/18/18 Rx Benzocaine/Menthol [Cepacol Sore 1 lilliam MT Q2H PRN 7 Days #84 lilliam 12/18/18 Rx Throat] guaiFENesin [Mucinex LA] 600 mg PO BID PRN 5 Days #10 tab 12/18/18 Rx Allergies/Adverse Reactions: Allergies Allergy/AdvReac Type Severity Reaction Status Date / Time No Known Allergies Allergy Verified 12/16/18 17:35 Physical Exam - Constitutional Appears: Well - Head Exam Head Exam: ATRAUMATIC, NORMAL INSPECTION, NORMOCEPHALIC - Eye Exam Eye Exam: EOMI, Normal appearance, PERRL Pupil Exam: NORMAL ACCOMODATION, PERRL - ENT Exam ENT Exam: Mucous Membranes Moist, Normal Exam - Neck Exam Neck exam: Positive for: Normal Inspection - Respiratory Exam Respiratory Exam: Clear to Auscultation Bilateral, NORMAL BREATHING PATTERN - Cardiovascular Exam Cardiovascular Exam: REGULAR RHYTHM - GI/Abdominal Exam GI & Abdominal Exam: Normal Bowel Sounds, Soft. absent: Tenderness - Extremities Exam Extremities exam: Positive for: normal inspection - Back Exam Back exam: NORMAL INSPECTION - Neurological Exam Neurological exam: Alert, CN II-XII Intact, Normal Gait, Oriented x3, Reflexes Normal - Psychiatric Exam Psychiatric exam: Normal Affect, Normal Mood - Skin Skin Exam: Dry, Intact, Normal Color, Warm - Additional Findings Additional findings: Mental status: The patient is alert, attentive, and oriented. Speech is clear and fluent with good repetition, comprehension, and naming. She is lithuanian speaking Cranial nerves: CN II - : Intact CN VII: Face is symmetric with normal eye closure and smile. CN VIII: Hearing is normal to rubbing fingers CN IX, X: Palate elevates symmetrically. Phonation is normal. CN XI: Head turning and shoulder shrug are intact CN XII: Tongue is midline with normal movements and no atrophy. Motor: There is no pronator drift of out-stretched arms. Muscle bulk and tone are normal. Muscle strength: 5/5 b/l UE and LE Reflexes: 2+ b/l UE and LE Sensory: Light touch, pinprick, position sense, and vibration sense are intact in fingers and toes. Coordination: Rapid alternating movements and fine finger movements are intact. There is no dysmetria on nwovlm-kb-gfpd and ggct-xnhz-ntth. There are no abnormal or extraneous movements. Romberg is absent. Gait/Stance: Posture is normal. Gait is steady with normal steps, base, arm swing, and turning. Heel and toe walking are normal. Tandem gait is normal when the patient closes one of her eyes. Results - Vital Signs Recent Vital Signs: Last Vital Signs Temp 97.3 F L 12/18/18 12:00 Pulse 59 L 12/18/18 12:00 Resp 19 12/18/18 12:00 BP 136/78 12/18/18 12:00 Pulse Ox 99 12/18/18 05:46 - Labs Result Diagrams: 12/18/18 07:05 12/18/18 05:00 Labs: Laboratory Results - last 24 hr 12/18/18 12/18/18 12/18/18 05:00 07:05 11:48 WBC 4.2 L RBC 4.81 Hgb 13.5 Hct 42.2 MCV 87.7 MCH 28.1 MCHC 32.0 RDW 13.3 Plt Count 232 MPV 10.4 Neut % (Auto) 29.5 L Lymph % (Auto) 57.8 H [place] % (Auto) 9.3 H Eos % (Auto) 2.9 Baso % (Auto) 0.5 Lymph # (Auto) 2.4 [place] # (Auto) 0.4 Eos # (Auto) 0.1 Baso # (Auto) 0.02 Absolute Neuts (auto) 1.24 L Sodium 139 Potassium 4.1 Chloride 104 Carbon Dioxide 29 Anion Gap 10 BUN 15 Creatinine 0.8 Est GFR ( Amer) > 60 Est GFR (Non-Af Amer) > 60 POC Glucose (mg/dL) 118 H Random Glucose 100 Calcium 9.1 Phosphorus 4.2 Magnesium 2.3 H Total Bilirubin 0.4 AST 26 ALT 12 Alkaline Phosphatase 62 Total Protein 7.6 Albumin 4.0 Globulin 3.6 Albumin/Globulin Ratio 1.1 Assessment & Plan - Assessment and Plan (Free Text) Assessment: 78 F with pertinent medical history presenting with 'dizziness.' Patient had imaging results as follow: MRI Brain: 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 Patient's labs further reveal HLD and newly-dx'd DM with A1C of 6.6. Plan R and L PICA Stenosis - COntinue with ASA/Lipitor - Outpatient follow up Dizziness, likely 2/2 medication (Donepezil) - Advise patient to be careful when taking her medications <Onur Tijerina - Last Filed: 12/18/18 18:24> Results - Vital Signs Recent Vital Signs: Last Vital Signs Temp 97.3 F L 12/18/18 12:00 Pulse 59 L 12/18/18 12:00 Resp 19 12/18/18 12:00 BP 136/78 12/18/18 12:00 Pulse Ox 99 12/18/18 05:46 - Labs Result Diagrams: 12/18/18 07:05 12/18/18 05:00 Labs: Laboratory Results - last 24 hr 12/18/18 12/18/18 12/18/18 05:00 07:05 11:48 WBC 4.2 L RBC 4.81 Hgb 13.5 Hct 42.2 MCV 87.7 MCH 28.1 MCHC 32.0 RDW 13.3 Plt Count 232 MPV 10.4 Neut % (Auto) 29.5 L Lymph % (Auto) 57.8 H [place] % (Auto) 9.3 H Eos % (Auto) 2.9 Baso % (Auto) 0.5 Lymph # (Auto) 2.4 [place] # (Auto) 0.4 Eos # (Auto) 0.1 Baso # (Auto) 0.02 Absolute Neuts (auto) 1.24 L Sodium 139 Potassium 4.1 Chloride 104 Carbon Dioxide 29 Anion Gap 10 BUN 15 Creatinine 0.8 Est GFR ( Amer) > 60 Est GFR (Non-Af Amer) > 60 POC Glucose (mg/dL) 118 H Random Glucose 100 Calcium 9.1 Phosphorus 4.2 Magnesium 2.3 H Total Bilirubin 0.4 AST 26 ALT 12 Alkaline Phosphatase 62 Total Protein 7.6 Albumin 4.0 Globulin 3.6 Albumin/Globulin Ratio 1.1 Attending/Attestation - Attestation I have personally seen and examined this patient.: Yes I have fully participated in the care of the patient.: Yes I have reviewed all pertinent clinical information: Yes Notes (Text): I agree with the assessment and plan. Likely due to medication change.
== END 2018-12-18 15:50 | disposition home or self-care (01) ==
LOC: ED 14:31 → ERH 16:10 → 2RSO 17:56
PROVIDERS: ADMIT Internal Medicine; ATTEND Internal Medicine
DX: R07.9 Chest pain, unspecified (principal); I65.21 Occlusion and stenosis of right carotid artery; I25.10 Atherosclerotic heart disease of native coronary artery without angina pectoris; I10 Essential (primary) hypertension; E11.9 Type 2 diabetes mellitus without complications; E78.5 Hyperlipidemia, unspecified; F03.90 Unspecified dementia, unspecified severity, without behavioral disturbance, psychotic disturbance, mood disturbance, and anxiety; E87.6 Hypokalemia; F41.9 Anxiety disorder, unspecified; K59.00 Constipation, unspecified; G89.29 Other chronic pain; M48.07 Spinal stenosis, lumbosacral region; Z95.5 Presence of coronary angioplasty implant and graft; K29.70 Gastritis, unspecified, without bleeding; Z91.14 Patient's other noncompliance with medication regimen
CPT/HCPCS: 36415; 70450; 70496; 70498; 70551; 71045; 80053; 80061; 82948; 83036; 83735; 83880; 84100; 84443; 84484; 85025; 93005; 93306; 97110; 97116; 97161; 99285; G0378; G8978; G8979; J7030; Q9967

== ENCOUNTER 2019-01-15 07:57 | Outpatient (CLI) | payer MEDICARE, MEDICAID, OTHER | END 2019-01-15 07:58 | disposition home or self-care (01) | LOC: CARDIO 07:57 ==